=== PATIENT | female | born 1955 | race Two or more races ===

== ENCOUNTER 2025-01-23 00:26 | Inpatient (IN) | payer MEDICAID, MEDICARE, OTHER ==
[2025-01-23] VITALS (7 sets, daily range): BP systolic 138–170; BP diastolic 62–90; PULSE 58–80; RESP 14–18; TEMP 97–97.9; O2SAT 94–98
[~2025-01-23] VITALS: Ht 160 cm; Wt 73.9 kg
--- NOTE | 2025-01-23 00:49 | ED.PDOC ---
History of Present Illness HPI Comments 69 year old female with history of recurrent hematuria for several months presents with one hour of hematuria and right flank pain. No associated fever, chills, dysuria, N/V, malaise. She takes aspirin at home. She has PMH of DM. Otherwise patient has been well, no known trigger or injury. REVIEW OF SYSTEMS: General: No fever, no chills, HEENT: No neck pain, no blurred vision Cardiac: No chest pain. No palpitations. Lungs: No shortness of breath, GI: No abdominal pain, no vomiting : Positive hematuria, positive right flank pain Musculoskeletal: No joint pain , no back pain Skin: No rash, no wound Neuro: No headache, no dizziness, no syncope PHYSICAL EXAM: General: Awake, alert and oriented. No acute distress. Skin: Skin in warm, dry and intact without rashes or lesions. HEENT: The head is normocephalic and atraumatic. Conjunctivae are clear without exudates or hemorrhage. Sclera is non-icteric. Neck: Normal range of motion. No JVD. Cardiac: Regular rate : Positive right CVA tenderness Respiratory: No signs of respiratory distress. No Stridor. Extremities: Upper and lower extremities are atraumatic in appearance without deformity. Neurological: The patient is awake, alert and oriented to person, place, and time with normal speech. Speech is clear. There is no facial asymmetry. Psychiatric: Appropriate mood and affect. Good judgement and insight. Chief Complaint: Urinary Time Seen by MD: 00:28 Allergies: Coded Allergies: NO KNOWN ALLERGIES (Unverified , 01/23/25) Home Meds Reported Medications Chlorthalidone (Chlorthalidone) 25 Mg Tab, 25 MG PO, TAB 01/23/25 Olmesartan Medoxomil (Benicar) 40 Mg Tab, 1 TAB PO DAILY, #30 TAB 5 Refills 01/23/25 Aspirin (Aspir-81) 81 Mg Tab, 1 TAB PO DAILY, #30 TAB 5 Refills 01/23/25 Atorvastatin Calcium (ATORVASTATIN CALCIUM) 20 Mg Tab, 1 TAB PO DAILY 01/23/25 Metformin Hydrochloride (Metformin Hcl) 1,000 Mg Tab, 1 TAB PO DAILY 01/23/25 Insulin Lispro (Insulin Lispro Kwikpen) 100 Unit/Ml Inj, SC 01/23/25 Insulin Glargine (Lantus Solostar) 100 Unit/Ml Inj, SC 01/23/25 Mode of Arrival: Ambulatory Was a procedure done? Was a procedure done?: No Differential Dx Considerations may include: Differential diagnosis includes but is not limited to pyelonephritis, ne phrolithiasis, AAA, musculoskeletal pain, urinary tract infection, cholecystitis, appendicitis, other X-Ray, Labs, Meds, VS Vital Signs Date Time Temp Pulse Resp B/P (MAP) Pulse Ox O2 Delivery O2 Flow Rate FiO2 01/23/25 00:29 98.3 67 18 167/74 97 98.3 Lab Test 01/23/25 00:46 01/23/25 00:45 Range/Units Urine Color Light-yellow Yellow Urine Clarity Turbid H Clear Urine pH 7.0 5.0-9.0 Urine Specific [place] 1.016 1.001-1.035 Urine Protein Trace H Negative Urine Ketones Negative Negative Urine Blood 3+ H Negative /uL Urine Nitrite Negative Negative Urine Bilirubin Negative Negative Urine Urobilinogen Normal Negative mg/dL Urine Leukocyte Esterase 3+ Negative /uL Urine RBC 167 0 - 4 /hpf Urine Microscopic WBC 232 H 0-5 /HPF Urine Squamous Epithelial Cells Few <5 /hpf Urine Bacteria Few H None Seen /hpf Urine Glucose 2+ H Normal mg/dL Urine Opiates Screen Neg NEGATIVE Urine Fentanyl Screen Neg NEGATIVE Urine Barbiturates Screen Neg NEGATIVE Urine Phencyclidine Screen Neg NEGATIVE Urine Amphetamines Screen Neg NEGATIVE Urine Benzodiazepines Screen Neg NEGATIVE Urine Cocaine Screen Neg NEGATIVE Urine Cannabinoids Screen Neg NEGATIVE White Blood Count 8.0 4.4-10.8 10^3/uL Red Blood Count 4.69 4.0-5.20 10^6/uL Hemoglobin 14.4 12.2-16.2 g/dL Hematocrit 42.2 36.0-46.0 % Mean Corpuscular Volume 89.8 80.0-100.0 fL Mean Corpuscular Hemoglobin 30.7 28.0-32.0 pg Mean Corpuscular Hemoglobin Concent 34.1 32.0-36.0 g/dL Red Cell Distribution Width 14.2 11.8-14.3 % Platelet Count 170 140-450 10^3/uL Mean Platelet Volume 9.9 6.9-10.8 fL Neutrophils (%) (Auto) 47.4 37.0-80.0 % Lymphocytes (%) (Auto) 40.4 10.0-50.0 % Monocytes (%) (Auto) 6.0 0.0-12.0 % Eosinophils (%) (Auto) 5.6 0.0-7.0 % Basophils (%) (Auto) 0.6 0.0-2.0 % Neutrophils # (Auto) 3.8 1.6-8.6 10 ^3/uL Lymphocytes # (Auto) 3.2 0.4-5.4 10 ^3/uL Monocytes # (Auto) 0.5 0-1.3 10 ^3/uL Eosinophils # (Auto) 0.4 0-0.8 10 ^3/uL Basophils # (Auto) 0.1 0-0.2 10 ^3/uL Nucleated Red Blood Cells 0.1 % Sodium Level 140 136-145 mmol/L Potassium Level 3.6 3.5-5.1 mmol/L Chloride Level 99 98-107 mmol/L Carbon Dioxide Level 32 H 20-31 mmol/L Anion Gap 9 5-15 Blood Urea Nitrogen 21 9-23 mg/dL Creatinine 1.04 H 0.550-1.02 mg/dL Glomerular Filtration Rate Calc 59 >90 mL/min BUN/Creatinine Ratio 20.2 H 10.0-20.0 Serum Glucose 181 H 74-106 mg/dL Hemoglobin A1c 12.1 H <5.7 % A1C Calcium Level 9.9 8.7-10.4 mg/dL Microbiology Date/Time Source Procedure Growth Status 01/23/25 00:46 Voided Urine Urine Culture - Final Klebsiella pneumoniae Complete Exam: CT CT AB PEL WO CON-NO ORAL OR IV History: hematuria, left flank pain Comparison Study: None TECHNIQUE: Multidetector CT of the abdomen and pelvis was performed from lung bases to pubic symphysis. Imaging was performed without IV contrast. Axial, coronal, and sagittal multiplanar reformats were obtained from the axial data set by the technologist. RADIATION DOSE: CTDI vol 7.55 mGy. DLP 462.12 mGy.cm Findings: Limited evaluation of the solid organs in the absence of IV contrast. Liver: Unremarkable. Spleen: Unremarkable. Pancreas: Unremarkable. Gallbladder: Unremarkable. Adrenals: Unremarkable Kidneys: There is mild left hydronephrosis. The proximal left ureter appears within normal limits. The remainder of the ureter is difficult to visualized. There is a 9 mm calcification in the expected region of the left mid ureter, though not clearly within its boundaries. Punctate bilateral nonobstructing renal calculi. Pelvic Viscera: Scattered pelvic phleboliths. Vasculature: Mild atherosclerotic aortoiliac calcifications. Retroperitoneum: Unremarkable. Bowel: No bowel obstruction. Musculoskeletal: Unremarkable. Soft tissues: Unremarkable Lungs: Basilar atelectasis/scarring. Impression: 1. Mild left hydronephrosis with a nondilated appearance of the left proximal ureter. The mid and distal ureter are difficult to visualize, though a 9 mm calcification is seen in the expected region of the left mid ureter. This is likely outside the ureter given the nondilated appearance of the proximal ureter, however is not conclusive on the basis of this examination. If clinically indicated, a CT urogram may be beneficial in further assessment. 2. Scattered pelvic phleboliths. 3. Additional findings as detailed. Time of 1ST Reevaluation: :58 Reevaluation 1ST: Unchanged Patient Education/Counseling: Other (Need for admission) Family Education/Counseling: No Family Present SEPSIS Sepsis Screen Date sepsis recognized/suspect: Jan 23, 2025 Time Sepsis recognized/suspect: 0034 Recent Procedure: No On Antibiotic Therapy: No Respiratory Rate >20: No Heart Rate >90: No Temp<36 C (96.8 F) or >38.3 C: No SBP <90 or MAP <65 mmHG: No New Acute Mental Status Change: No Is the patient on CPAP, BIPAP,: No Physician Orders Ct Ab Pel Wo Con-No Oral Or Iv (01/23/25 00:39) Vital Signs Date Time Temp Pulse Resp B/P (MAP) Pulse Ox O2 Delivery O2 Flow Rate FiO2 01/23/25 00:29 98.3 67 18 167/74 97 98.3 Laboratory Tests Test 01/23/25 00:45 White Blood Count 8.0 10^3/uL (4.4-10.8) Departure 1 Departure Time of Disposition: :58 Impression: Primary Impression: Hematuria Additional Impressions: KHANH (acute kidney injury) Hydronephrosis UTI (urinary tract infection) Disposition: 09 ADMITTED INPATIENT Condition: Stable Critical Care Note Critical Care Time?: No Stability Stability form required: RON Razo MD Jan 23, 2025 00:49
[2025-01-23 00:56] LABS: Hematocrit 42.2 % (36.0-46.0); Hemoglobin 14.4 g/dL (12.2-16.2); Mean Corpuscular Hemoglobin 30.7 pg (28.0-32.0); Mean Corpuscular Volume 89.8 fL (80.0-100.0); Nucleated Red Blood Cells % 0.1 %
[2025-01-23 01:01] LABS: Urine Protein, UAD TRACE (Negative)
[2025-01-23 01:08] LABS: Chloride 99 mmol/L (98-107); Potassium 3.6 mmol/L (3.5-5.1); Sodium 140 mmol/L (136-145)
[2025-01-23 01:09] LABS: Anion Gap 9 (5-15); Calcium 9.9 mg/dL (8.7-10.4)
[2025-01-23 01:14] LABS: BUN/Creatinine Ratio 20.2 (10.0-20.0); Blood Urea Nitrogen 21 mg/dL (9-23); Carbon Dioxide 32 mmol/L (20-31); Glucose 181 mg/dL (74-106)
--- NOTE | 2025-01-23 01:48 | DVH ---
Exam: CT CT AB PEL WO CON-NO ORAL OR IV History: hematuria, left flank pain Comparison Study: None TECHNIQUE: Multidetector CT of the abdomen and pelvis was performed from lung bases to pubic symphysi s. Imaging was performed without IV contrast. Axial, coronal, and sagittal multiplanar reformats were obtained from the axial data set by the technologist. RADIATION DOSE: CTDI vol 7.55 mGy. DLP 462.12 mGy.cm Findings: Limited evaluation of the solid organs in the absence of IV contrast. Liver: Unremarkable. Spleen: Unremarkable. Pancreas: Unremarkable. Gallbladder: Unremarkable. Adrenals: Unremarkable Kidneys: There is mild left hydronephrosis. The proximal left ureter appears within normal limits. T he remainder of the ureter is difficult to visualized. There is a 9 mm calcification in the expected region of the left mid ureter, though not clearly within its boundaries. Punctate bilateral nonobstr ucting renal calculi. Pelvic Viscera: Scattered pelvic phleboliths. Vasculature: Mild atherosclerotic aortoiliac calcifications. Retroperitoneum: Unremarkable. Bowel: No bowel obstruction. Musculoskeletal: Unremarkable. Soft tissues: Unremarkable Lungs: Basilar atelectasis/scarring. Impression: 1. Mild left hydronephrosis with a nondilated appearance of the left proximal ureter. The mid and dis geetha ureter are difficult to visualize, though a 9 mm calcification is seen in the expected region of the left mid ureter. This is likely outside the ureter given the nondilated appearance of the proxima l ureter, however is not conclusive on the basis of this examination. If clinically indicated, a CT urogram may be beneficial in further assessment. 2. Scattered pelvic phleboliths. 3. Additional findings as detailed.
[2025-01-23] MEDS ORDERED: CEFEPIME 1GM/ 50ML 50 ML IV ONE (02:00)
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
[2025-01-23] MEDS ORDERED: DEXTROSE (50%) 50ML SYRG IV PRN ×2 (04:15→11:15)
[2025-01-23] MEDS: PANTOPRAZOLE 40 MG TAB PO ONE (04:47)
[2025-01-23] MEDS: ATORVASTATIN 20 MG TAB PO ONE (04:47)
[2025-01-23] MEDS: MORPHINE SULFATE INJ 2 MG/ml SYRG IV ONE (04:48)
[2025-01-23] MEDS: cefTRIAXone 1GM/50ML D5W 50 ML IV ONE (04:48)
[2025-01-23] MEDS: ONDANSETRON HCL 4 MG/2 ML VIAL IV ONE (04:48)
[2025-01-23] MEDS: InsuLIN REG 1unit/0.01ml Soln (100units/ml) SC SCH ×2 (05:43→11:55)
[2025-01-23] MEDS: ACCU-CHEK COMFORT CURVE STRIP VI SCH ×2 (05:43→11:56)
[2025-01-23] MEDS: SODIUM CHLORIDE 0.9% 1,000 ML IV ONE (05:51)
[2025-01-23 06:15] LABS: Amphetamine Screen, Urine Neg (NEGATIVE); Barbiturate Scree,Urine Neg (NEGATIVE); Benzodiazephine Screen, Urine Neg (NEGATIVE); Cannabinoid Screen, Urine Neg (NEGATIVE); Cocaine Screen, Urine Neg (NEGATIVE); Opiate Scree,Urine Neg (NEGATIVE); Phencyclidine Screen, Urine Neg (NEGATIVE)
--- NOTE | 2025-01-23 06:47 | DVH ---
INDICATION: Hematuria TECHNIQUE: Multiple real-time sonographic images of the kidneys and bladder were obtained. COMPARISON: CT of the abdomen pelvis performed same date. FINDINGS: The right kidney measures 11.7 cm in length, which is normal in size. There is normal echog enicity of the right kidney. There are few echogenic foci measuring the largest measuring 0.8 cm. No hydronephrosis. The left kidney measures 12.3 cm in length, which is normal in size. There is normal echogenicity of the left kidney. There are few echogenic foci the largest measuring 0.5 cm. No hydronephrosis. No large intraluminal masses are seen in the bladder. Bilateral ureteral jets are identified. Prior t o voiding the bladder volume measures volume 1291 cc. IMPRESSION: 1. No hydronephrosis. Bilateral nonobstructive intrarenal calculi measuring 0.8 cm on the right and 0.5 cm on the left.
[2025-01-23] MEDS ORDERED: INSUINJ37 SC (13:34)
[2025-01-23] MEDS ORDERED: INSU100I54 SC (13:34)
[2025-01-23] MEDS ORDERED: ATOR20TA50 PO (13:34)
[2025-01-23] MEDS ORDERED: METF-372 PO (13:34)
[2025-01-23] MEDS ORDERED: ASPI1TAB20 PO (13:37)
[2025-01-23] MEDS ORDERED: OLME40TA78 PO (13:38)
[2025-01-23] MEDS ORDERED: CHLO25TA2 PO (16:19)
--- NOTE | 2025-01-23 16:29 | DVHPNRES ---
Progress Note Date Seen: Jan 23, 2025 Resident Creating Document: DIANA BATES RESIDENT Medical Necessity Reason Pt with a Central, PICC or Fol: No Subjective Review of Systems A 69-year-old female with prior medical history of type 2 diabetes mellitus, hypertension, stroke 2 years ago, hyperlipidemia, recurrent UTIs and overflow incontinence, who presented to the ED with chief complaint of abdominal pain and hematuria. Patient states onset of pressure like abdominal pain, lower left quadrant, intensity 10/10, slightly with Tylenol, accompanied by chills. The day before presentation, patient states her urine began to have a strong smell and had blood and clots in it, prompting her to seek medical care. Evaluation in the ED, WBC and chemical panel are within normal range, UDS negative, UA is consistent with UTI. Abdominal CT imaging shows mild left hydronephrosis with a nondilated appearance of the left proximal ureter. Renal US shows no hydronephrosis, bilateral nonobstructive intrarenal calculi measuring 0.8 cm on the right and 0.5 cm on the left. Patient was started on IV antibiotics, pain regimen, and was admitted for further work up and follow up. Surgical history: Bladder sling due to overflow urinary incontinence Social: Denies drugs, tobacco, and alcohol use Patient seen in the ED. She is alert and oriented in person, place, and time. She states she feels general malaise, but the abdominal pain has improved. Continues to have some blood in her urine. She currently denies fever, nausea, dysuria, suprapubic pain, chest pain, or other symptoms. Vitals have remained stable. Urine cultures have been ordered. Due to history of overflow incontinence, bladder sling procedure, and recurrent UTIs, urology consult has been placed. Bladder scan is currently pending. We will continue same management and continue to monitor. Review of Systems: Constitutional: Refers general malaise, denies weight loss, fever and chills. HEENT: Denies changes in vision and hearing. Respiratory: Denies shortness of breath and cough Cardiovascular: Denies chest discomfort or palpitations GI: Refers abdominal pain in LLQ, denies abdominal distention, diarrhea : Denies dysuria and urinary frequency. Musculoskeletal: Denies symptoms Skin: Denies rash and pruritus. Neurological: denies dizziness headache vision or hearing problems Objective vital signs Vital Sign Date Time Temp Pulse Resp B/P (MAP) Pulse Ox O2 Delivery O2 Flow Rate FiO2 01/23/25 12:19 97.0 58 138/74 (95) 96 97.0 01/23/25 09:07 16 01/23/25 08:36 Room Air* 0 21 Total Intake and Output 01/22/25 01/22/25 01/23/25 15:00 23:00 07:00 Intake Total 50 ml Balance 50 ml medications Current Medications Medications Dose Ordered Sig/Francie Route Start Time Stop Time Status Last Admin Dose Admin Acetaminophen/ Hydrocodone Bitart 1 tab Q4HP PRN PO 01/23/25 03:15 Ondansetron HCl 4 mg Q4HP PRN IV 01/23/25 03:15 Morphine Sulfate 2 mg Q4HPRN PRN IV 01/23/25 03:15 Ceftriaxone Sodium 50 ml @ 100 mls/hr DAILY@09 IV 01/24/25 09:00 Diagnostic Test (Pha) 1 strip IQ4HR 01/23/25 12:00 01/23/25 11:56 1 STRIP Insulin Human Regular IQ4HR SC 01/23/25 12:00 Dextrose 50 ml UD PRN IV 01/23/25 11:15 Examination General: The patient alert and oriented in person place and time. Patient following commands HEENT: Normocephalic, atraumatic, EOM intact, pink conjunctiva, pink moist mucous membrane Respiratory/pulmonary: Bilateral lung expansion, clear lungs bilaterally, vesicular murmurs present in almost all lung callejas, no associated crackles or wheezes. Abdomen: Abdomen nondistended, normal bowel movements, soft, no pain to palpation in any of the abdominal quadrants, no palpable masses. Extremities: Pain to palpation left iliac crest, no deformities, there is no peripheral edema present at the lower extremities, normal pulses Skin: No rashes or pruritus Neurological: Intact cranial nerves with no focal neurologic deficits laboratory and microbiology Laboratory Tests 01/23/25 00:45 Test 01/23/25 00:45 Range/Units Serum Glucose 181 H 74-106 mg/dL Problem List/Assessment/Plan Problem List/Assessment/Plan Assessment and Plan: Acute Abdominal pain due to Acute Cystitis with Hematuria -Cefepime 1 gr IV once -Ceftriaxone 1 g IV daily -Normal saline bolus -Morphine 2 mg IV q4 hr PRN -[place] 5 mg 1 tablet q4 PO PRN -Urine culture pending History of overflow incontinence -S/p Bladder sling -Urology consulted -Bladder scan pending Left hydronephrosis -Abdominal CT: mild left hydronephrosis with a nondilated appearance of the left proximal ureter. Right and Left nephrolithiasis -Renal US shows no hydronephrosis, bilateral nonobstructive intrarenal calculi measuring 0.8 cm on the right and 0.5 cm on the left. Hypertension -Amlodipine 40 mg PO Type 2 DM with hyperglycemia, HbA1c:12% -Moderate SSI -Accu-cheks -Carbohydrate consistent diet History of CVA Hyperlipidemia -Atorvastatin 40 mg PO daily Case discussed with Dr. Leach. Goals of care discussed with the patient for over 30 minutes, she states she understands and agrees. DNR. Plan discussed with: Patient Date of Service: Jan 23, 2025 Billing Provider: ELENI LEACH MD Common Visit Codes: [id number] INP/OBS CARE(HIGH) Secondary Visit Codes: [id number] CARE PLAN 30 MINUTES DIANA BATES RESIDENT Jan 23, 2025 16:29 ELENI LEACH MD Jan 24, 2025 21:07
[2025-01-23] MEDS: HYDROcodone-ACET 5/325MG TAB PO PRN (18:10)
[2025-01-24] VITALS (9 sets, daily range): BP systolic 104–170; BP diastolic 50–89; PULSE 65–80; RESP 16–20; TEMP 97.9–98.4; O2SAT 95–99
[2025-01-24 07:07] LABS: Hematocrit 39.4 % (36.0-46.0); Hemoglobin 13.7 g/dL (12.2-16.2); Mean Corpuscular Hemoglobin 31.4 pg (28.0-32.0); Mean Corpuscular Volume 90.2 fL (80.0-100.0); Nucleated Red Blood Cells % 0.2 %
[2025-01-24 07:19] LABS: Anion Gap 10 (5-15); Calcium 8.8 mg/dL (8.7-10.4); Chloride 99 mmol/L (98-107); Sodium 140 mmol/L (136-145)
[2025-01-24 07:25] LABS: BUN/Creatinine Ratio 23.6 (10.0-20.0); Blood Urea Nitrogen 21 mg/dL (9-23)
[2025-01-24 07:27] LABS: Carbon Dioxide 31 mmol/L (20-31); Glucose 341 mg/dL (74-106); Potassium 3.4 mmol/L (3.5-5.1)
[2025-01-24] MEDS: POTASSIUM CHL 20 Meq TABLET PO ONE (09:07)
[2025-01-24] MEDS: cefTRIAXone 1GM/50ML D5W 50 ML IV SCH (09:08)
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
--- NOTE | 2025-01-24 11:31 | DVH ---
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 LMP: Postmenopausal FINDINGS: Uterus: 8.8 X 4.3 X 3.7 Cm. 9 mm hypoechoic lesion at the lower uterine segment, possibly a small fib roid Endometrial echo complex: 0.35 cm. Small amount of fluid within the endometrial canal. The ovaries are not visualized bilaterally. Intrapelvic free fluid: Trace fluid in the cul-de-sac IMPRESSION: 1. Small amount of fluid in the endometrial canal which may suggest cervical stenosis versus obstruct ion. Recommend correlation with direct visualization. 2. Possible small uterine fibroid 3. The ovaries are not visualized
[2025-01-24] MEDS ORDERED: DEXTROSE (50%) 50ML SYRG IV PRN (14:30)
--- NOTE | 2025-01-24 15:54 | DVHPNRES ---
Progress Note Date Seen: Jan 24, 2025 Resident Creating Document: DIANA BATES RESIDENT Medical Necessity Reason Pt with a Central, PICC or Fol: Yes Reason for ramos catheter: Bladder Retention/Obstruc Subjective Review of Systems A 69-year-old female with prior medical history of type 2 diabetes mellitus, hypertension, stroke 2 years ago, hyperlipidemia, recurrent UTIs and overflow incontinence, who presented to the ED with chief complaint of abdominal pain and hematuria. Patient states onset of pressure like abdominal pain, lower left quadrant, intensity 10/10, slightly with Tylenol, accompanied by chills. The day before presentation, patient states her urine began to have a strong smell and had blood and clots in it, prompting her to seek medical care. Evaluation in the ED, WBC and chemical panel are within normal range, UDS negative, UA is consistent with UTI. Abdominal CT imaging shows mild left hydronephrosis with a nondilated appearance of the left proximal ureter. Renal US shows no hydronephrosis, bilateral nonobstructive intrarenal calculi measuring 0.8 cm on the right and 0.5 cm on the left. Patient was started on IV antibiotics, pain regimen, and was admitted for further work up and follow up. Patient seen at bedside. Patient states she feels well, slept well, and has been able to ambulate. States that abdominal pain has improved, still has minor abdominal pain when she urinates. She states that yesterday she had some swelling in her legs, however, this resolved on its own. Currently denies more episodes of hematuria, fever, nausea, vomiting, dysuria, chills, chest pain, and palpitations. Vitals have been stable. CBC within normal range, patient was slightly hypokalemic for which PO potassium was given. Glucose levels have been consistently elevated, for which a lantus regimen will be instated. Patient was seen by urology today, who recommended placement of Ramos catheter and left ureteroscopic laser lithotripsy and stent placement will be planned for Sunday. We will continue to monitor. Objective vital signs Vital Sign Date Time Temp Pulse Resp B/P (MAP) Pulse Ox O2 Delivery O2 Flow Rate FiO2 01/24/25 12:43 98.4 68 20 155/60 (91) 96 98.4 01/24/25 08:00 Room Air* 0 21 Total Intake and Output 01/23/25 01/23/25 01/24/25 15:00 23:00 07:00 Intake Total 940 ml 350 ml Output Total 560 ml Balance 380 ml 350 ml medications Current Medications Medications Dose Ordered Sig/Francie Route Start Time Stop Time Status Last Admin Dose Admin Acetaminophen/ Hydrocodone Bitart 1 tab Q4HP PRN PO 01/23/25 03:15 01/24/25 15:08 1 TAB Ondansetron HCl 4 mg Q4HP PRN IV 01/23/25 03:15 Morphine Sulfate 2 mg Q4HPRN PRN IV 01/23/25 03:15 Ceftriaxone Sodium 50 ml @ 100 mls/hr DAILY@09 IV 01/24/25 09:00 01/24/25 09:08 100 MLS/HR Insulin Glargine 10 units BID@0700,2200 SC 01/24/25 22:00 Diagnostic Test (Pha) 1 strip ACHS 01/24/25 17:00 Insulin Human Regular HS SC 01/24/25 22:00 Insulin Human Regular AC SC 01/24/25 17:00 Dextrose 50 ml UD PRN IV 01/24/25 14:30 Examination General: The patient alert and oriented in person place and time. Patient following commands HEENT: Normocephalic, atraumatic, EOM intact, pink conjunctiva, pink moist mucous membrane Respiratory/pulmonary: Bilateral lung expansion, clear lungs bilaterally, vesicular murmurs present in almost all lung callejas, no associated crackles or wheezes. Cardiovascular: Normal RRR, normal S1 and S2 Abdomen: Abdomen nondistended, normal bowel movements, soft, no pain to palpation in any of the abdominal quadrants, no palpable masses. Extremities: Pain to palpation left iliac crest, no deformities, there is no peripheral edema present at the lower extremities, normal pulses Skin: No rashes or pruritus Neurological: Intact cranial nerves with no focal neurologic deficits laboratory and microbiology Laboratory Tests 01/24/25 05:40 Test 01/24/25 05:40 Range/Units Serum Glucose 341 H 74-106 mg/dL Microbiology Date/Time Source Procedure Growth Status 01/23/25 00:46 Voided Urine Urine Culture - Preliminary Resulted Problem List/Assessment/Plan Problem List/Assessment/Plan Assessment and Plan: Acute Abdominal pain due to Acute Cystitis with Hematuria -Cefepime 1 gr IV once -Ceftriaxone 1 g IV daily -Normal saline bolus -Morphine 2 mg IV q4 hr PRN -[place] 5 mg 1 tablet q4 PO PRN -Urine culture preliminary: > 100,000 CFU/mL gram negative rods History of overflow incontinence -S/p Bladder sling -Renal US: Prevoid bladder volume 1291 cc. Left hydronephrosis -Abdominal CT: mild left hydronephrosis with a nondilated appearance of the left proximal ureter. -Ramos catheter has been placed -Urology: Recommend insertion of ramos catheter, left ureteroscopic laser lithotripsy planned for Sunday Right and Left nephrolithiasis -Renal US shows no hydronephrosis, bilateral nonobstructive intrarenal calculi measuring 0.8 cm on the right and 0.5 cm on the left. Hypertension -Amlodipine 40 mg PO Type 2 DM with hyperglycemia, HbA1c:12% -Lantus 10 units BID -Moderate SSI -Accu-cheks -Carbohydrate consistent diet History of CVA Hyperlipidemia -Atorvastatin 40 mg PO daily Case discussed with Dr. Leach. Goals of care discussed with the patient for over 30 minutes, she states she understands and agrees. Plan discussed with: Patient My Orders My Orders Orders - DIANA BATES RESIDENT Procedure Category Date Status Time Pelvic US 01/24/25 Resulted 10:22 Insert Ramos Catheter EDI 01/24/25 In Process 12:04 Date of Service: Jan 24, 2025 Billing Provider: ELENI LEACH MD Common Visit Codes: [id number] INP/OBS CARE(HIGH) DIANA BATES RESIDENT Jan 24, 2025 15:54 ELENI LEACH MD Jan 24, 2025 21:08
[2025-01-24] MEDS: ACCU-CHEK COMFORT CURVE STRIP VI SCH (16:40)
[2025-01-24] MEDS: MORPHINE SULFATE INJ 2 MG/ml SYRG IV ONE (16:40)
[2025-01-24] MEDS: InsuLIN REG 1unit/0.01ml Soln (100units/ml) SC SCH ×2 (16:41→22:36)
[2025-01-24] MEDS: INSULIN LANTUS (GLARGINE) 1 /0.01ml (100units/ml) SC SCH (22:00)
[2025-01-24] MEDS: MORPHINE SULFATE INJ 2 MG/ml SYRG IV PRN (22:12)
[2025-01-25 01:00] VITALS: BP 155/76; PULSE 67; RESP 18; TEMP 98.4; O2SAT 97
[2025-01-25 05:00] VITALS: BP 148/81; PULSE 68; RESP 18; TEMP 98.4; O2SAT 93
[2025-01-25 06:33] LABS: Hematocrit 39.7 % (36.0-46.0); Hemoglobin 13.6 g/dL (12.2-16.2); Mean Corpuscular Hemoglobin 30.8 pg (28.0-32.0); Mean Corpuscular Volume 89.6 fL (80.0-100.0); Nucleated Red Blood Cells % 0.0 %
[2025-01-25 06:51] LABS: Anion Gap 9 (5-15); Chloride 98 mmol/L (98-107); Sodium 138 mmol/L (136-145)
[2025-01-25 06:56] LABS: Calcium 8.7 mg/dL (8.7-10.4); Carbon Dioxide 31 mmol/L (20-31); Potassium 3.4 mmol/L (3.5-5.1)
[2025-01-25 06:57] LABS: BUN/Creatinine Ratio 25.6 (10.0-20.0); Blood Urea Nitrogen 20 mg/dL (9-23)
[2025-01-25 07:00] LABS: Glucose 249 mg/dL (74-106)
[2025-01-25 08:52] VITALS: BP 163/84; PULSE 77; RESP 18; TEMP 98.5; O2SAT 95
[2025-01-25] MEDS: hydroCHLOROthiazide 25 MG TAB PO SCH (09:19)
[2025-01-25 13:00] VITALS: BP 112/61; PULSE 72; RESP 18; TEMP 98; O2SAT 98
--- NOTE | 2025-01-25 13:59 | DVH ---
EXAM: XY CHEST PORTABLE TECHNIQUE: Single frontal chest radiograph CLINICAL HISTORY: PRE OP COMPARISON: None Findings/Impression: Frontal chest radiograph demonstrates no acute osseous or superficial soft tissue abnormalities. The trachea is midline. The cardiac silhouette and mediastinum are within normal limits. Bibasilar atelectasis. No pneumothorax, pleural effusions, or consolidations.
--- NOTE | 2025-01-25 14:56 | DVHPNRES ---
Progress Note Date Seen: Jan 25, 2025 Resident Creating Document: OLGA DAVIS Medical Necessity Reason Pt with a Central, PICC or Fol: Yes Reason for ramos catheter: Bladder Retention/Obstruc Subjective Review of Systems A 69-year-old female with prior medical history of type 2 diabetes mellitus, hypertension, stroke 2 years ago, hyperlipidemia, recurrent UTIs and overflow incontinence, who presented to the ED with chief complaint of abdominal pain and hematuria. Patient states onset of pressure like abdominal pain, lower left quadrant, intensity 10/10, slightly with Tylenol, accompanied by chills. The day before presentation, patient states her urine began to have a strong smell and had blood and clots in it, prompting her to seek medical care. Evaluation in the ED, WBC and chemical panel are within normal range, UDS negative, UA is consistent with UTI. Abdominal CT imaging shows mild left hydronephrosis with a nondilated appearance of the left proximal ureter. Renal US shows no hydronephrosis, bilateral nonobstructive intrarenal calculi measuring 0.8 cm on the right and 0.5 cm on the left. Patient was started on IV antibiotics, pain regimen, and was admitted for further work up and follow up. Patient seen at bedside. Patient states she feels well, slept well, and has been able to ambulate. States that abdominal pain has improved, still has minor abdominal pain when she urinates. She states that yesterday she had some swelling in her legs, however, this resolved on its own. Currently denies more episodes of hematuria, fever, nausea, vomiting, dysuria, chills, chest pain, and palpitations. Vitals have been stable. CBC within normal range, patient was slightly hypokalemic for which PO potassium was given. Glucose levels have been consistently elevated, for which a lantus regimen will be instated. Patient was seen by urology today, who recommended placement of Ramos catheter and left ureteroscopic laser lithotripsy and stent placement will be planned for Sunday. We will continue to monitor. Patient seen at bedside. Patient still complains with mild abdominal pain when she urinates. Urine bacterial culture shows Klebsiella pnuemoniae. Patient will begin NPO after midnight in preparation for a procedure scheduled tomorrow. Objective vital signs Vital Sign Date Time Temp Pulse Resp B/P (MAP) Pulse Ox O2 Delivery O2 Flow Rate FiO2 8/3/25 09:20 168/84 01/25/25 08:52 98.5 77 18 95 98.5 01/25/25 07:45 Room Air* 0 21 Total Intake and Output 01/24/25 01/24/25 01/25/25 15:00 23:00 07:00 Intake Total 270 ml 640 ml 800 ml Output Total 1050 ml 2000 ml Balance 270 ml -410 ml -1200 ml medications Current Medications Medications Dose Ordered Sig/Francie Route Start Time Stop Time Status Last Admin Dose Admin Acetaminophen/ Hydrocodone Bitart 1 tab Q4HP PRN PO 01/23/25 03:15 01/24/25 15:08 1 TAB Ondansetron HCl 4 mg Q4HP PRN IV 01/23/25 03:15 Morphine Sulfate 2 mg Q4HPRN PRN IV 01/23/25 03:15 01/24/25 22:12 2 MG Ceftriaxone Sodium 50 ml @ 100 mls/hr DAILY@09 IV 01/24/25 09:00 01/25/25 09:18 100 MLS/HR Insulin Glargine 10 units BID@0700,2200 SC 01/24/25 22:00 01/25/25 06:37 10 UNITS Diagnostic Test (Pha) 1 strip ACHS 01/24/25 17:00 01/25/25 11:49 1 STRIP Insulin Human Regular HS SC 01/24/25 22:00 01/24/25 22:36 8 UNITS Insulin Human Regular AC SC 01/24/25 17:00 01/25/25 11:48 9 UNITS Dextrose 50 ml UD PRN IV 01/24/25 14:30 Hydrochlorothiazide 25 mg DAILY PO 01/25/25 10:00 01/25/25 09:19 25 MG Amlodipine Besylate 10 mg DAILY PO 01/25/25 10:00 01/25/25 09:20 10 MG Examination General: The patient alert and oriented in person place and time. Patient following commands HEENT: Normocephalic, atraumatic, EOM intact, pink conjunctiva, pink moist mucous membrane Respiratory/pulmonary: Bilateral lung expansion, clear lungs bilaterally, vesicular murmurs present in almost all lung callejas, no associated crackles or wheezes. Cardiovascular: Normal RRR, normal S1 and S2 Abdomen: Abdomen nondistended, normal bowel movements, soft, no pain to palpation in any of the abdominal quadrants, no palpable masses. Extremities: Pain to palpation left iliac crest, no deformities, there is no peripheral edema present at the lower extremities, normal pulses Skin: No rashes or pruritus Neurological: Intact cranial nerves with no focal neurologic deficits laboratory and microbiology Laboratory Tests 01/25/25 05:40 Test 01/25/25 05:40 Range/Units Serum Glucose 249 H 74-106 mg/dL Microbiology Date/Time Source Procedure Growth Status 01/23/25 00:46 Voided Urine Urine Culture - Final Klebsiella pneumoniae Complete Labs and/or images reviewed: Labs reviewed by me, Image(s) reviewed by me Problem List/Assessment/Plan Problem List/Assessment/Plan # Acute Abdominal pain due to Acute Cystitis with Hematuria -Cefepime 1 gr IV once -Ceftriaxone 1 g IV daily -Normal saline bolus -Morphine 2 mg IV q4 hr PRN -Marcellus 5 mg 1 tablet q4 PO PRN -Urine culture preliminary: > 100,000 CFU/mL gram negative rods -Urine culture final: >100,000, Klebsiella pneumoniae # History of overflow incontinence -S/p Bladder sling -Renal US: Prevoid bladder volume 1291 cc. # Left hydronephrosis -Abdominal CT: mild left hydronephrosis with a nondilated appearance of the left proximal ureter. -Ramos catheter has been placed -Urology: Recommend insertion of ramos catheter, left ureteroscopic laser lithotripsy planned for Sunday # Right and Left nephrolithiasis -Renal US shows no hydronephrosis, bilateral nonobstructive intrarenal calculi measuring 0.8 cm on the right and 0.5 cm on the left. # Hypertension -Amlodipine 40 mg PO # Type 2 DM with hyperglycemia, HbA1c:12% -Lantus 10 units BID -Moderate SSI -Accu-cheks -Carbohydrate consistent diet # History of CVA # Hyperlipidemia -Atorvastatin 40 mg PO daily Goals of care: Full code, discussed for >16 minutes on 01/01/24 Plan discussed with patient Plan discussed with Dr. Leach Plan discussed with: Patient, Other My Orders My Orders Orders - OLGA DAVIS Procedure Category Date Status Time Npo (Nothing By DIET 01/26/25 Transmitted Mouth) Diet Breakfast Date of Service: Jan 25, 2025 Billing Provider: ELENI LEACH MD Common Visit Codes: [id number] INP/OBS CARE(HIGH) SUSANAMIEKARLENE RESIDENT Jan 25, 2025 14:56 ELENI LEACH MD Jan 25, 2025 21:42
--- NOTE | 2025-01-25 15:17 | DVHDSRES ---
Discharge Summary Date of Admission Resident Creating Document: OLGA DAVIS RESIDENT Jan 23, 2025 at 03:07 Date of Discharge: Jan 25, 2025 Labs/Diagnostic Data: Laboratory Results Test 01/25/25 11:31 01/25/25 05:40 01/23/25 00:46 01/23/25 00:45 POC Glucose 294 mg/dl (70-106) White Blood Count 7.0 10^3/uL (4.4-10.8) Red Blood Count 4.43 10^6/uL (4.0-5.20) Hemoglobin 13.6 g/dL (12.2-16.2) Hematocrit 39.7 % (36.0-46.0) Mean Corpuscular Volume 89.6 fL (80.0-100.0) Mean Corpuscular Hemoglobin 30.8 pg (28.0-32.0) Mean Corpuscular Hemoglobin Concent 34.4 g/dL (32.0-36.0) Red Cell Distribution Width 13.7 % (11.8-14.3) Platelet Count 148 10^3/uL (140-450) Mean Platelet Volume 10.3 fL (6.9-10.8) Neutrophils (%) (Auto) 51.2 % (37.0-80.0) Lymphocytes (%) (Auto) 36.6 % (10.0-50.0) Monocytes (%) (Auto) 7.1 % (0.0-12.0) Eosinophils (%) (Auto) 4.3 % (0.0-7.0) Basophils (%) (Auto) 0.8 % (0.0-2.0) Neutrophils # (Auto) 3.6 10 ^3/uL (1.6-8.6) Lymphocytes # (Auto) 2.6 10 ^3/uL (0.4-5.4) Monocytes # (Auto) 0.5 10 ^3/uL (0-1.3) Eosinophils # (Auto) 0.3 10 ^3/uL (0-0.8) Basophils # (Auto) 0.1 10 ^3/uL (0-0.2) Nucleated Red Blood Cells 0.0 % Sodium Level 138 mmol/L (136-145) Potassium Level 3.4 mmol/L (3.5-5.1) Chloride Level 98 mmol/L (98-107) Carbon Dioxide Level 31 mmol/L (20-31) Anion Gap 9 (5-15) Blood Urea Nitrogen 20 mg/dL (9-23) Creatinine 0.78 mg/dL (0.550-1.02) Glomerular Filtration Rate Calc 83 mL/min (>90) BUN/Creatinine Ratio 25.6 (10.0-20.0) Serum Glucose 249 mg/dL (74-106) Calcium Level 8.7 mg/dL (8.7-10.4) Urine Color Light-yellow (Yellow) Urine Clarity Turbid (Clear) Urine pH 7.0 (5.0-9.0) Urine Specific [place] 1.016 (1.001-1.035) Urine Protein Trace (Negative) Urine Ketones Negative (Negative) Urine Blood 3+ /uL (Negative) Urine Nitrite Negative (Negative) Urine Bilirubin Negative (Negative) Urine Urobilinogen Normal mg/dL (Negative) Urine Leukocyte Esterase 3+ /uL (Negative) Urine RBC 167 /hpf (0 - 4) Urine Microscopic WBC 232 /HPF (0-5) Urine Squamous Epithelial Cells Few /hpf (<5) Urine Bacteria Few /hpf (None Seen) Urine Glucose 2+ mg/dL (Normal) Urine Opiates Screen Neg (NEGATIVE) Urine Fentanyl Screen Neg (NEGATIVE) Urine Barbiturates Screen Neg (NEGATIVE) Urine Phencyclidine Screen Neg (NEGATIVE) Urine Amphetamines Screen Neg (NEGATIVE) Urine Benzodiazepines Screen Neg (NEGATIVE) Urine Cocaine Screen Neg (NEGATIVE) Urine Cannabinoids Screen Neg (NEGATIVE) Hemoglobin A1c 12.1 % A1C (<5.7) Other Laboratory Tests 01/25/25 05:40 Discharge Instruct/Medications Scheduled Aspirin (Aspir-81), 1 TAB PO DAILY, (Reported) Atorvastatin Calcium (Atorvastatin Calcium), 1 TAB PO DAILY, (Reported) Metformin Hydrochloride (Metformin Hcl), 1 TAB PO DAILY, (Reported) Olmesartan Medoxomil (Benicar), 1 TAB PO DAILY, (Reported) Miscellaneous Medications Chlorthalidone (Chlorthalidone), 25 MG PO, (Reported) Insulin Glargine (Lantus Solostar), SC, (Reported) Insulin Lispro (Insulin Lispro Kwikpen), SC, (Reported) Discharge Statement: "Patient was advised to return to the ER or call 911 if any headaches, dizziness, shortness of breath, chest pain, abdominal pain, bleeding, fevers, or worsening of medical condition. Patient was counseled about treatment plan, medications, possible side effects, patientverbalized understanding. All questions were answered to the best of my ability. This discharge took greater then 30 minutes in planning, reviewing documentation, counseling the patient, and discussing with other team members." ASSESSMENT ASSESSMENT Assessment OLGA DAVIS RESIDENT Jan 25, 2025 15:17
[2025-01-25 17:00] VITALS: BP 138/82; PULSE 73; RESP 18; TEMP 98.2; O2SAT 99
[2025-01-25] MEDS: POTASSIUM CHL 20 Meq TABLET PO ONE (17:18)
[2025-01-25 21:00] VITALS: BP 153/80; PULSE 72; RESP 17; TEMP 98; O2SAT 96
[2025-01-25] MEDS: DOCUSATE SOD 100 MG CAP PO ONE (22:36)
[2025-01-25] MEDS: ACETAMINOPHEN 325 MG TAB PO ONE (22:37)
[2025-01-26] VITALS (12 sets, daily range): BP systolic 102–167; BP diastolic 63–100; PULSE 60–75; RESP 12–20; TEMP 96.6–98.3; O2SAT 93–99
[2025-01-26] MEDS: InsuLIN REG 1unit/0.01ml Soln (100units/ml) SC ONE (06:40)
[2025-01-26 07:20] LABS: Hematocrit 40.4 % (36.0-46.0); Hemoglobin 13.9 g/dL (12.2-16.2); Mean Corpuscular Hemoglobin 30.8 pg (28.0-32.0); Mean Corpuscular Volume 89.7 fL (80.0-100.0); Nucleated Red Blood Cells % 0.1 %
[2025-01-26 07:27] LABS: Chloride 102 mmol/L (98-107); Sodium 142 mmol/L (136-145)
[2025-01-26 07:28] LABS: Anion Gap 10 (5-15); Calcium 8.8 mg/dL (8.7-10.4); Carbon Dioxide 30 mmol/L (20-31)
[2025-01-26 07:29] LABS: Potassium 3.4 mmol/L (3.5-5.1)
[2025-01-26 07:33] LABS: BUN/Creatinine Ratio 26.3 (10.0-20.0); Blood Urea Nitrogen 20 mg/dL (9-23)
[2025-01-26 07:34] LABS: Glucose 227 mg/dL (74-106)
[2025-01-26 07:37] LABS: INR 0.97 (0.9-1.15); Partial Thromboplastin Time 28.5 SEC (24.5-34.5); Prothrombin Time 10.3 sec (9.3-11.8)
--- NOTE | 2025-01-26 12:02 | ECG ---
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
[2025-01-26] MEDS ORDERED: MIDAZOLAM HCL 2MG/2ML 2ml VIAL (1mg/ml) ONE (12:29)
[2025-01-26] MEDS ORDERED: SODIUM CHLORIDE LOCK 10 ML ONE (12:29)
[2025-01-26] MEDS ORDERED: ONDANSETRON HCL 4 MG/2 ML VIAL ONE (12:29)
[2025-01-26] MEDS ORDERED: fentaNYL CITRATE 100 MCG/2 ML VL ONE (12:29)
[2025-01-26] MEDS ORDERED: LIDOCAINE 1% INJ PF 5ML AMP ONE (12:29)
[2025-01-26] MEDS ORDERED: KETAMINE 50mg/ML 1ml syringe ONE (12:29)
[2025-01-26] MEDS ORDERED: PROPOFOL 10 MG/ML 20 ML IV ONE (12:29)
[2025-01-26] MEDS ORDERED: LIDOCAINE HCL 2% TOP JELLY 5ML TOP ONE (12:29)
[2025-01-26] MEDS ORDERED: MORPHINE SULFATE INJ 2 MG/ml SYRG IV PRN (12:45)
[2025-01-26] MEDS ORDERED: METOCLOPRAMIDE HCL 5MG/ml INJ 2ml VIAL IV ONE (12:45)
[2025-01-26] MEDS ORDERED: MORPHINE SULFATE 4 MG/ML SYR/VIAL IV PRN (12:45)
[2025-01-26] MEDS ORDERED: HYDROmorphone HCL 2 MG/ML VL/or syr IV PRN ×2 (12:45)
--- NOTE | 2025-01-26 15:02 | DVHNC2 ---
Procedure - OPERATIVE REPORT Pre-op. Diagnosis: Left mid ureteral calculus, 9 mm left flank pain urinary retention secondary to prior sling operation Post-op. Diagnosis: Same as pre-op diagnosis Operation: left ureteroscopy/pyeloscopy cystoscopy with left retrograde pyelogram and left ureteral stent placement Anesthesia: general Dr. Page Indications: patient admitted for left-sided flank pain due to a 9 mm left mid ureteral calculus is to undergo left ureteroscope epic laser lithotripsy and stent placement. The indications, risks, alternative, benefits, and complications of ureteroscope with laser lithotripsy and stent placement are discussed with patient. All questions were encouraged and answered. She elected to proceed. Details of Procedure: After obtaining the consent, the patient was taken to the operating room and underwent general anesthesia. She was placed in dorsal lithotomy position with the area of the genitalia prepped and draped in usual sterile manner. Twenty-one Prydeinig rigid cystoscope was used to inspect the urethra and the bladder. The left ureteric orifice was cannulated with sensory guidewire and advanced proximally. On fluoroscopy the stone had migrated distally. The cystoscope was then removed. Rigid ureteroscope was utilized to access the left distal ureter. During the access, the stone migrated proximally due to the irrigation. The stone was no longer identified in the distal ureter. Next a flexible digital ureteroscope was used to inspect the ureter and renal pelvis. All the calices were evaluated and I was unable to identify the stone on fluoroscopy or endoscopically. After several attempts, I decided to abort the procedure with a stent left in place. Guidewire was then placed into the renal system and the ureteroscope was removed. The guidewire was backloaded onto the cystoscope and under direct vision, six Prydeinig by 24 cm polaris loop ureteral stent was placed. Bladder was decompressed. Patient was awakened and taken to recovery room in stable condition Specimens: none Complications: none Findings: 6 x 24 cm polaris loop ureteral stent placed Notes: we will re-evaluate the stone position with postoperative KUB versus CT scan as outpatient AMELIA GRULLON MD Jan 26, 2025 15:02
--- NOTE | 2025-01-26 15:03 | DVHPNRES ---
Progress Note Date Seen: Jan 26, 2025 Resident Creating Document: DIANA BATES RESIDENT Medical Necessity Reason Pt with a Central, PICC or Fol: Yes Reason for ramos catheter: Bladder Retention/Obstruc Subjective Review of Systems A 69-year-old female with prior medical history of type 2 diabetes mellitus, hypertension, stroke 2 years ago, hyperlipidemia, recurrent UTIs and overflow incontinence, who presented to the ED with chief complaint of abdominal pain and hematuria. Patient states onset of pressure like abdominal pain, lower left quadrant, intensity 10/10, slightly with Tylenol, accompanied by chills. The day before presentation, patient states her urine began to have a strong smell and had blood and clots in it, prompting her to seek medical care. Evaluation in the ED, WBC and chemical panel are within normal range, UDS negative, UA is consistent with UTI. Abdominal CT imaging shows mild left hydronephrosis with a nondilated appearance of the left proximal ureter. Renal US shows no hydronephrosis, bilateral nonobstructive intrarenal calculi measuring 0.8 cm on the right and 0.5 cm on the left. Patient was started on IV antibiotics, pain regimen, and was admitted for further work up and follow up. Patient seen at bedside. She is AOx4, states she is well. Pain has decreased, she has been able to ambulate, and is tolerating oral diet. No adverse events over night. Blood glucose has been elevated, she continues on Lantus BID. Nursing reached out due to elevated blood sugar this morning, a decreased dose of insulin was given due patient's NPO status. Vitals have been stable, and labs are within normal range. She will be undergoing lithotripsy today with Urology. We will continue to monitor. Objective vital signs Vital Sign Date Time Temp Pulse Resp B/P (MAP) Pulse Ox O2 Delivery O2 Flow Rate FiO2 01/26/25 12:26 73 18 146/100 01/26/25 09:00 97.8 97 97.8 01/26/25 08:00 Room Air* 0 21 Total Intake and Output 01/25/25 01/25/25 01/26/25 15:00 23:00 07:00 Intake Total 500 ml 300 ml Output Total 1400 ml 300 ml Balance -900 ml 0 ml medications Current Medications Medications Dose Ordered Sig/Francie Route Start Time Stop Time Status Last Admin Dose Admin Acetaminophen/ Hydrocodone Bitart 1 tab Q4HP PRN PO 01/23/25 03:15 01/24/25 15:08 1 TAB Ondansetron HCl 4 mg Q4HP PRN IV 01/23/25 03:15 Morphine Sulfate 2 mg Q4HPRN PRN IV 01/23/25 03:15 01/26/25 12:26 2 MG Ceftriaxone Sodium 50 ml @ 100 mls/hr DAILY@09 IV 01/24/25 09:00 01/26/25 10:10 100 MLS/HR Diagnostic Test (Pha) 1 strip ACHS 01/24/25 17:00 01/26/25 11:30 1 STRIP Insulin Human Regular HS SC 01/24/25 22:00 01/25/25 21:38 10 UNITS Insulin Human Regular AC SC 01/24/25 17:00 01/25/25 17:19 15 UNITS Dextrose 50 ml UD PRN IV 01/24/25 14:30 Hydrochlorothiazide 25 mg DAILY PO 01/25/25 10:00 01/26/25 10:11 25 MG Amlodipine Besylate 10 mg DAILY PO 01/25/25 10:00 01/26/25 10:11 10 MG Insulin Glargine 15 units BID@0700,2200 SC 01/26/25 22:00 Morphine Sulfate 2 mg Q4H PRN IV 01/26/25 12:45 01/26/25 16:46 Examination General: The patient alert and oriented in person place and time. Patient following commands HEENT: Normocephalic, atraumatic, EOM intact, pink conjunctiva, pink moist mucous membrane Respiratory/pulmonary: Bilateral lung expansion, clear lungs bilaterally, vesicular murmurs present in almost all lung callejas, no associated crackles or wheezes. Cardiovascular: Normal RRR, normal S1 and S2 Abdomen: Abdomen nondistended, normal bowel movements, soft, no pain to palpation in any of the abdominal quadrants, no palpable masses. : Presence of Ramos draining clear urine Extremities: Pain to palpation left iliac crest, no deformities, there is no peripheral edema present at the lower extremities, normal pulses Skin: No rashes or pruritus Neurological: Intact cranial nerves with no focal neurologic deficits laboratory and microbiology Laboratory Tests 01/26/25 05:38 Test 01/26/25 05:38 Range/Units Serum Glucose 227 H 74-106 mg/dL Microbiology Date/Time Source Procedure Growth Status 01/23/25 00:46 Voided Urine Urine Culture - Final Klebsiella pneumoniae Complete Problem List/Assessment/Plan Problem List/Assessment/Plan Assessment and Plan: Acute Abdominal pain due to Acute Cystitis with Hematuria -Cefepime 1 gr IV once -Ceftriaxone 1 g IV daily -Normal saline bolus -Morphine 2 mg IV q4 hr PRN -[place] 5 mg 1 tablet q4 PO PRN -Urine culture: Klebsiella pneumoniae, sensitive to ceftriaxone History of overflow incontinence -S/p Bladder sling -Renal US: Prevoid bladder volume 1291 cc. Left hydronephrosis -Abdominal CT: mild left hydronephrosis with a nondilated appearance of the left proximal ureter. -Ramos catheter has been placed -Urology: Recommend insertion of ramos catheter, left ureteroscopic laser lithotripsy planned for Sunday Left ureterolithiasis -Abdominal CT: The mid and distal ureter are difficult to visualize, though a 9 mm calcification is seen in the expected region of the left mid ureter. -S/p left ureteroscopic laser lithotripsy and stent placement Right and Left nephrolithiasis -Renal US shows no hydronephrosis, bilateral nonobstructive intrarenal calculi measuring 0.8 cm on the right and 0.5 cm on the left. Hypertension -Amlodipine 40 mg PO Type 2 DM with hyperglycemia, HbA1c:12% -Lantus 15 units BID -Moderate SSI -Accu-cheks -Carbohydrate consistent diet History of CVA Hyperlipidemia -Atorvastatin 40 mg PO daily Case discussed with Dr. Leach. Goals of care discussed with the patient for over 30 minutes, she states she understands and agrees. Plan discussed with: Patient, Other (RN) Date of Service: Jan 26, 2025 Billing Provider: ELENI LEACH MD Common Visit Codes: [id number] INP/OBS CARE(HIGH) DIANA BATES RESIDENT Jan 26, 2025 15:03 ELENI LEACH MD Feb 01, 2025 20:37
[2025-01-26] MEDS: ACCU-CHEK COMFORT CURVE STRIP VI ONE (15:10)
[2025-01-26] MEDS: ROCURONIUM 10MG/ML 10ML VIAL IV ONE (15:16)
[2025-01-26] MEDS: SUCCINYLCHOLINE CHLORIDE 20 MG/ML 10ML VIAL IV ONE (15:16)
[2025-01-26] MEDS: IOHEXOL 300 MG/ML 100ML BOTTLE IJ ONE (15:17)
[2025-01-26] MEDS ORDERED: KETOROLAC TROMETH 30 MG/ML 1ML VIAL IV ONE (16:00)
[2025-01-26] MEDS ORDERED: KETOROLAC TROMETH 30 MG/ML 1ML VIAL ONE (16:05)
[2025-01-26] MEDS ORDERED: HYDROmorphone HCL 2 MG/ML VL/or syr ONE (16:25)
--- NOTE | 2025-01-26 17:03 | DVH ---
C-ARM FLUOROSCOPY: PROCEDURE: Internal ureteral stent placement, left FLUOROSCOPY TIME: 85.3 seconds DAP: 19.8 mgy FINDINGS: Spot intraoperative C arm radiographs demonstrating left internal ureteral stent placement. IMPRESSION: Please refer to surgical report for detailed findings.
[2025-01-26] MEDS: INSULIN LANTUS (GLARGINE) 1 /0.01ml (100units/ml) SC SCH (22:21)
[2025-01-27 01:00] VITALS: BP 136/77; PULSE 80; RESP 20; TEMP 96.7; O2SAT 96
[2025-01-27 05:00] VITALS: BP 141/74; PULSE 78; RESP 20; TEMP 98.5; O2SAT 96
[2025-01-27 09:00] VITALS: BP 147/76; PULSE 71; RESP 18; TEMP 98.3; O2SAT 95
--- NOTE | 2025-01-27 10:28 | DVH ---
CT CT AB PEL WO CON-NO ORAL OR IV INDICATION: left renal stone EXAM DATE: 01/27/2025 09:27 AM COMPARISON: CT CT AB PEL WO CON-NO ORAL OR IV on DOS: 01/23/25 RADIATION DOSE: CTDIvol: 11.75 mGy, DLP: 644.55 mGy*cm PROCEDURE: Helical CT images were obtained of the abdomen and pelvis without IV contrast Sagittal and coronal reconstructions are provided. ORAL CONTRAST: None. ADDITIONAL IMAGES / REFORMATS: None All C T scans at this medical facility are performed using dose modulation techniques as appropriate to a p erformed exam including the following: Automated exposure control was utilized; adjustment of the MA and/or KV according to patient size; and use of iterative reconstruction technique. FINDINGS: LUNG BASE: Bibasilar atelectasis. LIVER: Normal. GALLBLADDER AND BILIARY TREE: No calcified gallstones. Normal caliber wall. No intra- or extrahepatic biliary ductal dilation. PANCREAS: Normal. SPLEEN: Normal. BOWEL: Normal. Partially visualized appendix appears normal. ADRENALS: Normal. KIDNEYS AND URETER: Interval placement of a left ureteral stent with interval removal of a left mid u reteral stone. BLADDER: Normal. REPRODUCTIVE ORGANS: Normal. LYMPH NODES:No lymphadenopathy. PERITONEUM: No ascites or free air. No other fluid collection. VESSELS: Scattered atherosclerotic calcifications are noted. RETROPERITONEUM: Normal. ABDOMINAL WALL: Normal. BONES: Scattered osseous degenerative changes are noted. IMPRESSION: Interval placement of a left ureteral stent with interval removal of a left mid ureteral stone.
[2025-01-27] MEDS: ONDANSETRON HCL 4 MG/2 ML VIAL IV PRN (12:39)
[2025-01-27 13:00] VITALS: BP 170/86; PULSE 84; RESP 17; TEMP 98.3; O2SAT 96
[2025-01-27 13:48] LABS: Hematocrit 41.5 % (36.0-46.0); Hemoglobin 14.3 g/dL (12.2-16.2); Mean Corpuscular Hemoglobin 30.8 pg (28.0-32.0); Mean Corpuscular Volume 89.7 fL (80.0-100.0); Nucleated Red Blood Cells % 0.1 %
[2025-01-27 13:51] LABS: Sodium 138 mmol/L (136-145)
[2025-01-27 13:52] LABS: Anion Gap 9 (5-15); Calcium 8.9 mg/dL (8.7-10.4)
[2025-01-27 13:54] LABS: Carbon Dioxide 31 mmol/L (20-31); Chloride 98 mmol/L (98-107); Potassium 3.4 mmol/L (3.5-5.1)
[2025-01-27 13:57] LABS: BUN/Creatinine Ratio 23.4 (10.0-20.0); Blood Urea Nitrogen 18 mg/dL (9-23)
[2025-01-27 13:59] LABS: Glucose 229 mg/dL (74-106)
--- NOTE | 2025-01-27 16:12 | DVHPNRES ---
Progress Note Date Seen: Jan 27, 2025 Resident Creating Document: DIANA BATES RESIDENT Medical Necessity Reason Pt with a Central, PICC or Fol: No Subjective Review of Systems A 69-year-old female with prior medical history of type 2 diabetes mellitus, hypertension, stroke 2 years ago, hyperlipidemia, recurrent UTIs and overflow incontinence, who presented to the ED with chief complaint of abdominal pain and hematuria. Patient states onset of pressure like abdominal pain, lower left quadrant, intensity 10/10, slightly with Tylenol, accompanied by chills. The day before presentation, patient states her urine began to have a strong smell and had blood and clots in it, prompting her to seek medical care. Evaluation in the ED, WBC and chemical panel are within normal range, UDS negative, UA is consistent with UTI. Abdominal CT imaging shows mild left hydronephrosis with a nondilated appearance of the left proximal ureter. Renal US shows no hydronephrosis, bilateral nonobstructive intrarenal calculi measuring 0.8 cm on the right and 0.5 cm on the left. Patient was started on IV antibiotics, pain regimen, and was admitted for further work up and follow up. Patient seen at bedside. Patient is AO x4, on initial evaluation this morning patient stated that pain had improved and was only present when she was draining while urinating. however, patient later developed intense abdominal pain in left lower quadrant with radiation towards her back. She denied nausea, vomiting, fever, diarrhea, chest pain, and other symptoms. Patient has been hypertensive, however this may be associated to periods of pains, other vitals have been within normal range. Labs within normal range. Patient was taken to T today which showed interval placement of left ureteral stent with interval removal of the left mid ureteral stone. We will continue to monitor the patient's pain and manage accordingly. Objective vital signs Vital Sign Date Time Temp Pulse Resp B/P (MAP) Pulse Ox O2 Delivery O2 Flow Rate FiO2 01/27/25 14:10 75 18 203/93 01/27/25 09:00 98.3 95 98.3 01/26/25 20:00 Room Air* 0 21 Total Intake and Output 01/26/25 01/26/25 01/27/25 15:00 23:00 07:00 Intake Total 10 ml 50 ml 600 ml Output Total 150 ml 200 ml Balance -140 ml -150 ml 600 ml medications Current Medications Medications Dose Ordered Sig/Francie Route Start Time Stop Time Status Last Admin Dose Admin Acetaminophen/ Hydrocodone Bitart 1 tab Q4HP PRN PO 01/23/25 03:15 01/27/25 10:34 1 TAB Ondansetron HCl 4 mg Q4HP PRN IV 01/23/25 03:15 01/27/25 12:39 4 MG Morphine Sulfate 2 mg Q4HPRN PRN IV 01/23/25 03:15 01/27/25 14:10 2 MG Ceftriaxone Sodium 50 ml @ 100 mls/hr DAILY@09 IV 01/24/25 09:00 01/27/25 09:11 100 MLS/HR Diagnostic Test (Pha) 1 strip ACHS 01/24/25 17:00 01/27/25 11:43 1 STRIP Insulin Human Regular HS SC 01/24/25 22:00 01/26/25 22:22 6 UNITS Insulin Human Regular AC SC 01/24/25 17:00 01/27/25 11:48 6 UNITS Dextrose 50 ml UD PRN IV 01/24/25 14:30 Hydrochlorothiazide 25 mg DAILY PO 01/25/25 10:00 01/27/25 09:11 25 MG Amlodipine Besylate 10 mg DAILY PO 01/25/25 10:00 01/27/25 09:10 10 MG Insulin Glargine 15 units BID@0700,2200 SC 01/26/25 22:00 01/27/25 06:30 15 UNITS Hydralazine HCl 5 mg [id number] PRN IV 01/26/25 15:30 Tamsulosin HCl 0.4 mg QPM PO 01/27/25 18:00 UNV Oxybutynin Chloride 5 mg Q12HR PO 01/27/25 22:00 UNV Examination General: The patient alert and oriented in person place and time. Patient following commands HEENT: Normocephalic, atraumatic, EOM intact, pink conjunctiva, pink moist mucous membrane Respiratory/pulmonary: Bilateral lung expansion, clear lungs bilaterally, vesicular murmurs present in almost all lung callejas, no associated crackles or wheezes. Cardiovascular: Normal RRR, normal S1 and S2 Abdomen: Abdomen nondistended, normal bowel movements, soft, pain to palpation in LLQ, no palpable masses. : Presence of Ramos draining clear urine Extremities: Pain to palpation left iliac crest, no deformities, there is no peripheral edema present at the lower extremities, normal pulses Skin: No rashes or pruritus Neurological: Intact cranial nerves with no focal neurologic deficits laboratory and microbiology Laboratory Tests 01/27/25 13:05 Test 01/27/25 13:05 Range/Units Serum Glucose 229 H 74-106 mg/dL Microbiology Date/Time Source Procedure Growth Status 01/23/25 00:46 Voided Urine Urine Culture - Final Klebsiella pneumoniae Complete Problem List/Assessment/Plan Problem List/Assessment/Plan Assessment and Plan: Acute Abdominal pain due to Acute Cystitis with Hematuria -Cefepime 1 gr IV once -Ceftriaxone 1 g IV daily -Normal saline bolus -Morphine 2 mg IV q4 hr PRN -[place] 5 mg 1 tablet q4 PO PRN -Urine culture: Klebsiella pneumoniae, sensitive to ceftriaxone History of overflow incontinence -S/p Bladder sling -Renal US: Prevoid bladder volume 1291 cc. Left hydronephrosis -Abdominal CT: mild left hydronephrosis with a nondilated appearance of the left proximal ureter. -Ramos catheter has been placed -Urology: Recommend insertion of ramos catheter, left ureteroscopic laser lithotripsy planned for Sunday Left ureterolithiasis -Abdominal CT: The mid and distal ureter are difficult to visualize, though a 9 mm calcification is seen in the expected region of the left mid ureter. -S/p left ureteroscopic laser lithotripsy and stent placement -Abdominal CT: interval placement of left ureteral stent with interval removal of the left mid ureteral stone. -Flomax 0.4 mg PO qPM Right and Left nephrolithiasis -Renal US shows no hydronephrosis, bilateral nonobstructive intrarenal calculi measuring 0.8 cm on the right and 0.5 cm on the left. Hypokalemia, 3.4 -Potassium 20 mEq PO Hypertension -Amlodipine 40 mg PO Type 2 DM with hyperglycemia, HbA1c:12% -Lantus 15 units BID -Moderate SSI -Accu-cheks -Carbohydrate consistent diet History of CVA Hyperlipidemia -Atorvastatin 40 mg PO daily Case discussed with Dr. Leach. Goals of care discussed with the patient and her daughter for over 30 minutes, she states she understands and agrees. Plan discussed with: Patient, Daughter Date of Service: Jan 27, 2025 Billing Provider: ELENI LEACH MD Common Visit Codes: [id number] INP/OBS CARE(HIGH) DIANA BATES RESIDENT Jan 27, 2025 16:12 ELENI LEACH MD Feb 01, 2025 20:37
[2025-01-27 17:00] VITALS: BP 157/82; PULSE 82; RESP 18; TEMP 98.1; O2SAT 97
[2025-01-27] MEDS: TAMSULOSIN HYDROCHLORIDE 0.4 MG CAP PO SCH (18:36)
[2025-01-27] MEDS: POTASSIUM CHL 20 Meq TABLET PO ONE (18:36)
[2025-01-27 21:00] VITALS: BP 180/91; PULSE 77; RESP 17; TEMP 98.4; O2SAT 92
[2025-01-27] MEDS: OXYBUTYNIN CHL 5 MG TAB PO SCH (21:09)
[2025-01-27] MEDS: hydrALAZINE HCL 20 MG/ML VL IV PRN (21:10)
[2025-01-27] MEDS: KETOROLAC TROMETH 30 MG/ML 1ML VIAL IV SCH (22:57)
[2025-01-28 01:00] VITALS: BP 101/54; PULSE 76; RESP 18; TEMP 97.7; O2SAT 93
[2025-01-28 05:00] VITALS: BP 131/71; PULSE 80; RESP 18; TEMP 98.6; O2SAT 93
[2025-01-28] MEDS: PANTOPRAZOLE 40 MG TAB PO SCH (05:26)
[2025-01-28 07:34] LABS: Hematocrit 39.0 % (36.0-46.0); Hemoglobin 13.5 g/dL (12.2-16.2); Mean Corpuscular Hemoglobin 31.0 pg (28.0-32.0); Mean Corpuscular Volume 89.7 fL (80.0-100.0); Nucleated Red Blood Cells % 0.1 %
[2025-01-28 07:40] LABS: Anion Gap 10 (5-15); Calcium 8.9 mg/dL (8.7-10.4); Sodium 137 mmol/L (136-145)
[2025-01-28 07:46] LABS: BUN/Creatinine Ratio 19.5 (10.0-20.0); Blood Urea Nitrogen 16 mg/dL (9-23)
[2025-01-28 07:48] LABS: Carbon Dioxide 31 mmol/L (20-31); Chloride 96 mmol/L (98-107); Glucose 230 mg/dL (74-106); Potassium 3.4 mmol/L (3.5-5.1)
[2025-01-28 09:00] VITALS: BP 154/83; PULSE 71; RESP 18; TEMP 98.6; O2SAT 95
[2025-01-28] MEDS: POTASSIUM CHL 20 Meq TABLET PO ONE (09:02)
[2025-01-28] MEDS: SODIUM CHLORIDE 0.9% 1,000 ML IV SCH (13:45)
--- NOTE | 2025-01-28 15:06 | DVH ---
Date: 01/28/2025 02:11 PM Examination: XY KUB ABDOMEN SINGLE VIEW History: Abdominal pain Comparison: CT CT AB PEL WO CON-NO ORAL OR IV on DOS: 01/27/25, XY KUB ABDOMEN SINGLE VIEW on DOS: , US KIDNEY on DOS: 01/23/25 TECHNIQUE: Frontal views of the abdomen was obtained. Findings/impression Left ureteral stent. Large volume stool throughout the colon. Pelvic vascular phleboliths. Moderate degenerate changes of the hips. Moderate bilateral sacroiliac degenerative joint disease.
[2025-01-28] MEDS: POLYETHYLENE GLYCOL 17 GM PWDR PO ONE (17:32)
[2025-01-28] MEDS: DOCUSATE SOD 100 MG CAP PO SCH (17:32)
--- NOTE | 2025-01-28 18:47 | DVHPNRES ---
Progress Note Date Seen: Jan 28, 2025 Resident Creating Document: DIANA BATES RESIDENT Medical Necessity Reason Pt with a Central, PICC or Fol: No Subjective Review of Systems A 69-year-old female with prior medical history of type 2 diabetes mellitus, hypertension, stroke 2 years ago, hyperlipidemia, recurrent UTIs and overflow incontinence, who presented to the ED with chief complaint of abdominal pain and hematuria. Patient states onset of pressure like abdominal pain, lower left quadrant, intensity 10/10, slightly with Tylenol, accompanied by chills. The day before presentation, patient states her urine began to have a strong smell and had blood and clots in it, prompting her to seek medical care. Evaluation in the ED, WBC and chemical panel are within normal range, UDS negative, UA is consistent with UTI. Abdominal CT imaging shows mild left hydronephrosis with a nondilated appearance of the left proximal ureter. Renal US shows no hydronephrosis, bilateral nonobstructive intrarenal calculi measuring 0.8 cm on the right and 0.5 cm on the left. Patient was started on IV antibiotics, pain regimen, and was admitted for further work up and follow up. Patient seen at beside. She is AOx4, states that overnight she had LLQ pain that was relieved with use of toradol and allowing her to sleep. She states she is tolerating oral diet and ambulating to the bathroom. Refers hematuria and abdominal pain on urination. Patient has hypertensive peaks associated to periods of pain. On second evaluation, patient was found to be in severe pain, referring stabbing pain in LLQ with intensity of 10/10. Abdominal KUB was ordered, which shows left ureteral stent, large volume stool throughout the colon, pelvic vascular phleboliths, and moderate degenerate changes of the hips. We will continue to monitor. Objective vital signs Vital Sign Date Time Temp Pulse Resp B/P (MAP) Pulse Ox O2 Delivery O2 Flow Rate FiO2 01/28/25 17:34 68 17 161/69 01/28/25 09:00 98.6 95 98.6 01/28/25 08:00 Room Air* 0 21 Total Intake and Output 01/27/25 01/27/25 01/28/25 15:00 23:00 07:00 Intake Total 900 ml Output Total 400 ml 350 ml 200 ml Balance -400 ml 550 ml -200 ml medications Current Medications Medications Dose Ordered Sig/Francie Route Start Time Stop Time Status Last Admin Dose Admin Acetaminophen/ Hydrocodone Bitart 1 tab Q4HP PRN PO 01/23/25 03:15 01/28/25 05:27 1 TAB Ondansetron HCl 4 mg Q4HP PRN IV 01/23/25 03:15 01/27/25 12:39 4 MG Morphine Sulfate 2 mg Q4HPRN PRN IV 01/23/25 03:15 01/28/25 17:34 2 MG Ceftriaxone Sodium 50 ml @ 100 mls/hr DAILY@09 IV 01/24/25 09:00 01/28/25 08:54 100 MLS/HR Diagnostic Test (Pha) 1 strip ACHS 01/24/25 17:00 01/28/25 17:06 1 STRIP Insulin Human Regular HS SC 01/24/25 22:00 01/27/25 21:17 6 UNITS Insulin Human Regular AC SC 01/24/25 17:00 01/28/25 17:38 6 UNITS Dextrose 50 ml UD PRN IV 01/24/25 14:30 Hydrochlorothiazide 25 mg DAILY PO 01/25/25 10:00 01/28/25 08:54 25 MG Amlodipine Besylate 10 mg DAILY PO 01/25/25 10:00 01/28/25 08:53 10 MG Insulin Glargine 15 units BID@0700,2200 SC 01/26/25 22:00 01/28/25 05:25 15 UNITS Hydralazine HCl 5 mg [id number] PRN IV 01/26/25 15:30 01/27/25 21:10 5 MG Tamsulosin HCl 0.4 mg QPM PO 01/27/25 18:00 01/28/25 17:32 0.4 MG Oxybutynin Chloride 5 mg Q12HR PO 01/27/25 22:00 01/28/25 08:54 5 MG Ketorolac Tromethamine 15 mg BID IV 01/27/25 20:30 02/01/25 20:29 01/28/25 11:29 15 MG Pantoprazole Sodium 40 mg DAILY@0600 PO 01/28/25 06:00 01/28/25 05:26 40 MG Sodium Chloride 1,000 ml @ 50 mls/hr Q20H IV 01/28/25 13:45 01/28/25 13:45 50 MLS/HR Docusate Sodium 100 mg BID PO 01/28/25 17:00 01/28/25 17:32 100 MG Polyethylene Glycol 17 gm DAILYPRN PRN PO 01/29/25 05:00 Examination General: The patient alert and oriented in person place and time. Patient following commands HEENT: Normocephalic, atraumatic, EOM intact, pink conjunctiva, pink moist mucous membrane Respiratory/pulmonary: Bilateral lung expansion, clear lungs bilaterally, vesicular murmurs present in almost all lung callejas, no associated crackles or wheezes. Cardiovascular: Normal RRR, normal S1 and S2 Abdomen: Abdomen nondistended, normal bowel movements, soft, pain to palpation in LLQ, no palpable masses. : Presence of Ramos draining clear urine Extremities: Pain to palpation left iliac crest, no deformities, there is no peripheral edema present at the lower extremities, normal pulses Skin: No rashes or pruritus Neurological: Intact cranial nerves with no focal neurologic deficits laboratory and microbiology Laboratory Tests 01/28/25 04:37 Test 01/28/25 04:37 Range/Units Serum Glucose 230 H 74-106 mg/dL Microbiology Date/Time Source Procedure Growth Status 01/23/25 00:46 Voided Urine Urine Culture - Final Klebsiella pneumoniae Complete Problem List/Assessment/Plan Problem List/Assessment/Plan Assessment and Plan: Acute Abdominal pain due to Acute Cystitis with Hematuria -Cefepime 1 gr IV once -Ceftriaxone 1 g IV daily -Normal saline bolus -Morphine 2 mg IV q4 hr PRN -[place] 5 mg 1 tablet q4 PO PRN -Urine culture: Klebsiella pneumoniae, sensitive to ceftriaxone History of overflow incontinence -S/p Bladder sling -Renal US: Prevoid bladder volume 1291 cc. Left hydronephrosis -Abdominal CT: mild left hydronephrosis with a nondilated appearance of the left proximal ureter. -Ramos catheter has been placed -Urology: Recommend insertion of ramos catheter, left ureteroscopic laser lithotripsy planned for Sunday Left ureterolithiasis -Abdominal CT: The mid and distal ureter are difficult to visualize, though a 9 mm calcification is seen in the expected region of the left mid ureter. -S/p left ureteroscopic laser lithotripsy and stent placement -Abdominal CT: interval placement of left ureteral stent with interval removal of the left mid ureteral stone. -Flomax 0.4 mg PO qPM -Abdominal KUB: left ureteral stent, large volume stool throughout the colon, pelvic vascular phleboliths, moderate degenerate changes of the hips, moderate bilateral sacroiliac degenerative joint disease. Right and Left nephrolithiasis -Renal US shows no hydronephrosis, bilateral nonobstructive intrarenal calculi measuring 0.8 cm on the right and 0.5 cm on the left. Hypokalemia, 3.4 -Potassium 20 mEq PO Hypertension -Amlodipine 40 mg PO Type 2 DM with hyperglycemia, HbA1c:12% -Lantus 15 units BID -Moderate SSI -Accu-cheks -Carbohydrate consistent diet Constipation -Colace 100 mg BID -Miralax 17 g PO daily History of CVA Hyperlipidemia -Atorvastatin 40 mg PO daily Case discussed with Dr. Leach. Goals of care discussed with the patient and her daughter for over 30 minutes, she states she understands and agrees. Plan discussed with: Patient My Orders My Orders Orders - DIANA BATES RESIDENT Procedure Category Date Status Time Kub Abdomen Single XY 01/28/25 Resulted View 13:57 Docusate Sodium PHA 01/28/25 In Process Capsule (Colace 17:00 Polyethylene Glycol PHA 01/29/25 In Process 17g Powder (Miralax 05:00 Complete Blood Count LAB 01/29/25 Verified 04:00 Basic Metabolic Panel LAB 01/29/25 Verified 04:00 Dietary Evaluation Review Comments: Nutrition recommendation 1) CCHO 60gm + cardiac 2) Refer [employer] for diabetes education 3) Monitor lab values, wt trends, skin trends, Expected Outcomes/Goals: To meet >75% estimated needs Lab values to improve Fu 3-5 days Date of Service: Jan 28, 2025 Billing Provider: ELENI LEACH MD Common Visit Codes: [id number] INP/OBS CARE(MOD) DIANA BATES RESIDENT Jan 28, 2025 18:47 ELENI LEACH MD Feb 01, 2025 20:38
[2025-01-28 20:00] VITALS: PULSE 75; RESP 18; O2SAT 94
[2025-01-28 21:00] VITALS: BP 124/73; PULSE 75; RESP 16; TEMP 98.1; O2SAT 94
[2025-01-29] VITALS (7 sets, daily range): BP systolic 114–148; BP diastolic 58–81; PULSE 69–94; RESP 16–19; TEMP 97.5–98.3; O2SAT 96–98
[2025-01-29 07:57] LABS: Hematocrit 39.9 % (36.0-46.0); Hemoglobin 13.5 g/dL (12.2-16.2); Mean Corpuscular Hemoglobin 30.5 pg (28.0-32.0); Mean Corpuscular Volume 90.0 fL (80.0-100.0); Nucleated Red Blood Cells % 0.0 %
[2025-01-29 08:10] LABS: Anion Gap 6 (5-15); Chloride 101 mmol/L (98-107); Potassium 3.7 mmol/L (3.5-5.1); Sodium 141 mmol/L (136-145)
[2025-01-29 08:11] LABS: Calcium 8.8 mg/dL (8.7-10.4)
[2025-01-29 08:16] LABS: BUN/Creatinine Ratio 17.4 (10.0-20.0); Blood Urea Nitrogen 12 mg/dL (9-23)
[2025-01-29 08:21] LABS: Carbon Dioxide 34 mmol/L (20-31); Glucose 157 mg/dL (74-106)
--- NOTE | 2025-01-29 15:43 | DVHPN2 ---
Progress Note - Dictate Date Seen: Jan 29, 2025 Medical Necessity Reason Pt with a Central, PICC or Fol: Yes The following are medically ne: Almanza Catheter vital signs Vital Sign Date Time Temp Pulse Resp B/P (MAP) Pulse Ox O2 Delivery O2 Flow Rate FiO2 01/29/25 13:00 98.2 79 16 143/79 (100) 98 98.2 01/29/25 08:00 Room Air* 0 21 Total Intake and Output 01/28/25 01/28/25 01/29/25 15:00 23:00 07:00 Intake Total 50 ml Output Total 550 ml Balance 50 ml -550 ml medications Current Medications Medications Dose Ordered Sig/Francie Route Start Time Stop Time Status Last Admin Dose Admin Acetaminophen/ Hydrocodone Bitart 1 tab Q4HP PRN PO 01/23/25 03:15 01/28/25 05:27 1 TAB Ondansetron HCl 4 mg Q4HP PRN IV 01/23/25 03:15 01/27/25 12:39 4 MG Morphine Sulfate 2 mg Q4HPRN PRN IV 01/23/25 03:15 01/29/25 05:38 2 MG Ceftriaxone Sodium 50 ml @ 100 mls/hr DAILY@09 IV 01/24/25 09:00 01/29/25 12:02 100 MLS/HR Diagnostic Test (Pha) 1 strip ACHS 01/24/25 17:00 01/29/25 11:30 1 STRIP Insulin Human Regular HS SC 01/24/25 22:00 01/28/25 21:38 6 UNITS Insulin Human Regular AC SC 01/24/25 17:00 01/29/25 12:01 9 UNITS Dextrose 50 ml UD PRN IV 01/24/25 14:30 Hydrochlorothiazide 25 mg DAILY PO 01/25/25 10:00 01/29/25 11:09 25 MG Amlodipine Besylate 10 mg DAILY PO 01/25/25 10:00 01/29/25 11:09 10 MG Insulin Glargine 15 units BID@0700,2200 SC 01/26/25 22:00 01/29/25 06:36 15 UNITS Hydralazine HCl 5 mg [id number] PRN IV 01/26/25 15:30 01/27/25 21:10 5 MG Tamsulosin HCl 0.4 mg QPM PO 01/27/25 18:00 8/6/25 17:32 0.4 MG Oxybutynin Chloride 5 mg Q12HR PO 01/27/25 22:00 01/29/25 11:09 5 MG Ketorolac Tromethamine 15 mg BID IV 01/27/25 20:30 02/01/25 20:29 01/29/25 12:03 15 MG Pantoprazole Sodium 40 mg DAILY@0600 PO 01/28/25 06:00 01/29/25 05:37 40 MG Sodium Chloride 1,000 ml @ 50 mls/hr Q20H IV 01/28/25 13:45 01/28/25 13:45 50 MLS/HR Docusate Sodium 100 mg BID PO 01/28/25 17:00 01/29/25 11:09 100 MG Polyethylene Glycol 17 gm DAILYPRN PRN PO 01/29/25 05:00 laboratory and microbiology Laboratory Tests 01/29/25 06:37 Test 01/29/25 06:37 Range/Units Serum Glucose 157 H 74-106 mg/dL [place] [address] Ph: [phone] DIAGNOSTIC IMAGING Diagnostic Imaging Report : [id number] Signed PATIENT: SMOOTH AYERSACCT: [id number] UNIT: [id number] : 1955 [facility] / BED: [address] [place] [address] AGE / SEX: 69 / F ADM STATUS: ADM IN SERVICE 0910 ORDERING PHYSICIAN: AMELIA GRULLON MD PROCEDURE(s): ABPL - CT AB PEL WO CON-NO ORAL OR IV REASON: left renal stone ORDER NUMBER(s): [id number], ACCESSION NUMBER(s): [id number] CT CT AB PEL WO CON-NO ORAL OR IV INDICATION: left renal stone EXAM DATE: 01/27/2025 09:27 AM COMPARISON: CT CT AB PEL WO CON-NO ORAL OR IV on DOS: 01/23/25 RADIATION DOSE: CTDIvol: 11.75 mGy, DLP: 644.55 mGy*cm PROCEDURE: Helical CT images were obtained of the abdomen and pelvis without IV contrast Sagittal and coronal reconstructions are provided. ORAL CONTRAST: None. ADDITIONAL IMAGES / REFORMATS: None All CT scans at this medical facility are performed using dose modulation techniques as appropriate to a performed exam including the following: Automated exposure control was utilized; adjustment of the MA and/or KV according to patient size; and use of iterative reconstruction technique. FINDINGS: LUNG BASE: Bibasilar atelectasis. LIVER: Normal. GALLBLADDER AND BILIARY TREE: No calcified gallstones. Normal caliber wall. No intra- or extrahepatic biliary ductal dilation. PANCREAS: Normal. SPLEEN: Normal. BOWEL: Normal. Partially visualized appendix appears normal. ADRENALS: Normal. KIDNEYS AND URETER: Interval placement of a left ureteral stent with interval removal of a left mid ureteral stone. BLADDER: Normal. REPRODUCTIVE ORGANS: Normal. LYMPH NODES:No lymphadenopathy. PERITONEUM: No ascites or free air. No other fluid collection. VESSELS: Scattered atherosclerotic calcifications are noted. RETROPERITONEUM: Normal. ABDOMINAL WALL: Normal. BONES: Scattered osseous degenerative changes are noted. IMPRESSION: Interval placement of a left ureteral stent with interval removal of a left mid ureteral stone. ATED BY: ABHISHEK HOWELL MD Problems(with codes): (1) Hydronephrosis (2) Hematuria (3) UTI (urinary tract infection) (4) KHANH (acute kidney injury) Dietary Evaluation Review Comments: Nutrition recommendation 1) CCHO 60gm + cardiac 2) Refer [employer] for diabetes education 3) Monitor lab values, wt trends, skin trends, Expected Outcomes/Goals: To meet >75% estimated needs Lab values to improve Fu 3-5 days Plan discussed with: Patient NAEEMKACIE Esposito [employer] Jan 29, 2025 15:43
[2025-01-29 16:50] LABS: Urine Protein, UAD 1+ (Negative)
--- NOTE | 2025-01-29 19:06 | DVHPNRES ---
Progress Note Date Seen: Jan 29, 2025 Resident Creating Document: DIANA BATES RESIDENT Medical Necessity Reason Pt with a Central, PICC or Fol: Yes The following are medically ne: Ramos Catheter Subjective Review of Systems A 69-year-old female with prior medical history of type 2 diabetes mellitus, hypertension, stroke 2 years ago, hyperlipidemia, recurrent UTIs and overflow incontinence, who presented to the ED with chief complaint of abdominal pain and hematuria. Patient states onset of pressure like abdominal pain, lower left quadrant, intensity 10/10, slightly with Tylenol, accompanied by chills. The day before presentation, patient states her urine began to have a strong smell and had blood and clots in it, prompting her to seek medical care. Evaluation in the ED, WBC and chemical panel are within normal range, UDS negative, UA is consistent with UTI. Abdominal CT imaging shows mild left hydronephrosis with a nondilated appearance of the left proximal ureter. Renal US shows no hydronephrosis, bilateral nonobstructive intrarenal calculi measuring 0.8 cm on the right and 0.5 cm on the left. Patient was started on IV antibiotics, pain regimen, and was admitted for further work up and follow up. Patient seen at bedside. Patient is AOx4, patient states she feels well, pain has improved significantly, last episode of severe pain was the day prior at 3:00 p.m.. Has been able to sleep, ambulate around her room, and is tolerated oral diet. Adverse events overnight. Vitals have remained stable, labs are within normal range. Per nurse's note and the patient she is still presenting hematuria. Follow-up urinalysis has been ordered. We will continue current management, possible DC tomorrow. Objective vital signs Vital Sign Date Time Temp Pulse Resp B/P (MAP) Pulse Ox O2 Delivery O2 Flow Rate FiO2 01/29/25 16:53 98.3 73 18 136/74 (94) 96 98.3 01/29/25 08:00 Room Air* 0 21 Total Intake and Output 01/28/25 01/28/25 01/29/25 15:00 23:00 07:00 Intake Total 50 ml Output Total 550 ml Balance 50 ml -550 ml medications Current Medications Medications Dose Ordered Sig/Francie Route Start Time Stop Time Status Last Admin Dose Admin Acetaminophen/ Hydrocodone Bitart 1 tab Q4HP PRN PO 01/23/25 03:15 01/29/25 17:43 1 TAB Ondansetron HCl 4 mg Q4HP PRN IV 01/23/25 03:15 01/27/25 12:39 4 MG Morphine Sulfate 2 mg Q4HPRN PRN IV 01/23/25 03:15 01/29/25 05:38 2 MG Ceftriaxone Sodium 50 ml @ 100 mls/hr DAILY@09 IV 01/24/25 09:00 01/29/25 12:02 100 MLS/HR Diagnostic Test (Pha) 1 strip ACHS 01/24/25 17:00 01/29/25 17:00 1 STRIP Insulin Human Regular HS SC 01/24/25 22:00 01/28/25 21:38 6 UNITS Insulin Human Regular AC SC 01/24/25 17:00 01/29/25 17:44 9 UNITS Dextrose 50 ml UD PRN IV 01/24/25 14:30 Hydrochlorothiazide 25 mg DAILY PO 01/25/25 10:00 01/29/25 11:09 25 MG Amlodipine Besylate 10 mg DAILY PO 01/25/25 10:00 01/29/25 11:09 10 MG Insulin Glargine 15 units BID@0700,2200 SC 01/26/25 22:00 01/29/25 06:36 15 UNITS Hydralazine HCl 5 mg [id number] PRN IV 01/26/25 15:30 01/27/25 21:10 5 MG Tamsulosin HCl 0.4 mg QPM PO 01/27/25 18:00 01/29/25 17:43 0.4 MG Oxybutynin Chloride 5 mg Q12HR PO 01/27/25 22:00 01/29/25 11:09 5 MG Ketorolac Tromethamine 15 mg BID IV 01/27/25 20:30 02/01/25 20:29 01/29/25 12:03 15 MG Pantoprazole Sodium 40 mg DAILY@0600 PO 01/28/25 06:00 01/29/25 05:37 40 MG Sodium Chloride 1,000 ml @ 50 mls/hr Q20H IV 01/28/25 13:45 01/28/25 13:45 50 MLS/HR Docusate Sodium 100 mg BID PO 01/28/25 17:00 01/29/25 11:09 100 MG Polyethylene Glycol 17 gm DAILYPRN PRN PO 01/29/25 05:00 laboratory and microbiology Laboratory Tests 01/29/25 06:37 Test 01/29/25 06:37 Range/Units Serum Glucose 157 H 74-106 mg/dL Microbiology Date/Time Source Procedure Growth Status 01/23/25 00:46 Voided Urine Urine Culture - Final Klebsiella pneumoniae Complete Problem List/Assessment/Plan Problem List/Assessment/Plan Assessment and Plan: Acute Abdominal pain due to Acute Cystitis with Hematuria -Cefepime 1 gr IV once -Ceftriaxone 1 g IV daily -Normal saline bolus -Morphine 2 mg IV q4 hr PRN -Delaplaine 5 mg 1 tablet q4 PO PRN -Urine culture: Klebsiella pneumoniae, sensitive to ceftriaxone History of overflow incontinence -S/p Bladder sling -Renal US: Prevoid bladder volume 1291 cc. Left hydronephrosis -Abdominal CT: mild left hydronephrosis with a nondilated appearance of the left proximal ureter. -Ramos catheter has been placed -Urology: Recommend insertion of ramos catheter, left ureteroscopic laser lithotripsy planned for Sunday Left ureterolithiasis -Abdominal CT: The mid and distal ureter are difficult to visualize, though a 9 mm calcification is seen in the expected region of the left mid ureter. -S/p left ureteroscopic laser lithotripsy and stent placement -Abdominal CT: interval placement of left ureteral stent with interval removal of the left mid ureteral stone. -Flomax 0.4 mg PO qPM -Abdominal KUB: left ureteral stent, large volume stool throughout the colon, pelvic vascular phleboliths, moderate degenerate changes of the hips, moderate bilateral sacroiliac degenerative joint disease. Right and Left nephrolithiasis -Renal US shows no hydronephrosis, bilateral nonobstructive intrarenal calculi measuring 0.8 cm on the right and 0.5 cm on the left. Hypokalemia, 3.4, resolved -Potassium 20 mEq PO Hypertension -Amlodipine 40 mg PO Type 2 DM with hyperglycemia, HbA1c:12% -Lantus 15 units BID -Moderate SSI -Accu-cheks -Carbohydrate consistent diet Constipation -Colace 100 mg BID -Miralax 17 g PO daily History of CVA Hyperlipidemia -Atorvastatin 40 mg PO daily Case discussed with Dr. Leach. Plan discussed with: Patient Dietary Evaluation Review Comments: Nutrition recommendation 1) CCHO 60gm + cardiac 2) Refer Materials Handling Equipment Operator for diabetes education 3) Monitor lab values, wt trends, skin trends, Expected Outcomes/Goals: To meet >75% estimated needs Lab values to improve Fu 3-5 days Date of Service: Jan 29, 2025 Billing Provider: ELENI LEACH MD Common Visit Codes: [id number] INP/OBS CARE(MOD) DIANA BATES RESIDENT Jan 29, 2025 19:06 ELENI LEACH MD Feb 01, 2025 21:49
[2025-01-29] MEDS: POLYETHYLENE GLYCOL 17 GM PWDR PO PRN (21:36)
[2025-01-30 05:00] VITALS: BP 146/78; PULSE 68; RESP 16; TEMP 98.6; O2SAT 94
[2025-01-30 08:00] VITALS: PULSE 71; RESP 18; O2SAT 97
[2025-01-30 09:00] VITALS: BP 144/113; PULSE 71; RESP 18; TEMP 98; O2SAT 97
[2025-01-30 13:00] VITALS: BP 138/75; PULSE 65; RESP 18; TEMP 97.8; O2SAT 96
[2025-01-30] MEDS ORDERED: ATOR20TA50 PO (14:28)
[2025-01-30] MEDS ORDERED: INSLANTI SC (14:28)
[2025-01-30] MEDS ORDERED: TAMS-35 PO (14:28)
[2025-01-30] MEDS ORDERED: AML5T PO (14:28)
[2025-01-30] MEDS ORDERED: ASPI1TAB20 PO (14:28)
[2025-01-30] MEDS ORDERED: HYDR25TA5 PO (14:28)
[2025-01-30] MEDS ORDERED: INSREGI SC (14:28)
[2025-01-30 15:31] VITALS: BP 138/75; PULSE 65; RESP 18; TEMP 97.8; O2SAT 96
--- NOTE | 2025-01-30 17:59 | DVHDSRES ---
Discharge Summary Date of Admission Resident Creating Document: DIANA BATES RESIDENT Jan 23, 2025 at 03:07 Date of Discharge: Jan 25, 2025 Admitting Diagnosis Acute Abdominal Pain Labs/Diagnostic Data: Laboratory Results Test 01/30/25 11:26 01/29/25 16:36 01/29/25 06:37 01/26/25 05:38 POC Glucose 263 mg/dl (70-106) Urine Color Light-brown (Yellow) Urine Clarity Clear (Clear) Urine pH 6.5 (5.0-9.0) Urine Specific [place] 1.005 (1.001-1.035) Urine Protein 1+ (Negative) Urine Ketones Negative (Negative) Urine Blood 3+ /uL (Negative) Urine Nitrite Negative (Negative) Urine Bilirubin Negative (Negative) Urine Urobilinogen Normal mg/dL (Negative) Urine Leukocyte Esterase 2+ /uL (Negative) Urine RBC 16 /hpf (0 - 4) Urine Microscopic WBC 49 /HPF (0-5) Urine Squamous Epithelial Cells Few /hpf (<5) Urine Bacteria Few /hpf (None Seen) Urine Glucose 4+ mg/dL (Normal) White Blood Count 7.5 10^3/uL (4.4-10.8) Red Blood Count 4.43 10^6/uL (4.0-5.20) Hemoglobin 13.5 g/dL (12.2-16.2) Hematocrit 39.9 % (36.0-46.0) Mean Corpuscular Volume 90.0 fL (80.0-100.0) Mean Corpuscular Hemoglobin 30.5 pg (28.0-32.0) Mean Corpuscular Hemoglobin Concent 34.0 g/dL (32.0-36.0) Red Cell Distribution Width 13.8 % (11.8-14.3) Platelet Count 177 10^3/uL (140-450) Mean Platelet Volume 10.0 fL (6.9-10.8) Neutrophils (%) (Auto) 63.9 % (37.0-80.0) Lymphocytes (%) (Auto) 22.8 % (10.0-50.0) Monocytes (%) (Auto) 8.1 % (0.0-12.0) Eosinophils (%) (Auto) 4.4 % (0.0-7.0) Basophils (%) (Auto) 0.8 % (0.0-2.0) Neutrophils # (Auto) 4.8 10 ^3/uL (1.6-8.6) Lymphocytes # (Auto) 1.7 10 ^3/uL (0.4-5.4) Monocytes # (Auto) 0.6 10 ^3/uL (0-1.3) Eosinophils # (Auto) 0.3 10 ^3/uL (0-0.8) Basophils # (Auto) 0.1 10 ^3/uL (0-0.2) Nucleated Red Blood Cells 0.0 % Sodium Level 141 mmol/L (136-145) Potassium Level 3.7 mmol/L (3.5-5.1) Chloride Level 101 mmol/L (98-107) Carbon Dioxide Level 34 mmol/L (20-31) Anion Gap 6 (5-15) Blood Urea Nitrogen 12 mg/dL (9-23) Creatinine 0.69 mg/dL (0.550-1.02) Glomerular Filtration Rate Calc 95 mL/min (>90) BUN/Creatinine Ratio 17.4 (10.0-20.0) Serum Glucose 157 mg/dL (74-106) Calcium Level 8.8 mg/dL (8.7-10.4) Prothrombin Time 10.3 sec (9.3-11.8) Prothrombin Time INR 0.97 (0.9-1.15) Activated Partial Thromboplast Time 28.5 SEC (24.5-34.5) Test 01/23/25 00:46 01/23/25 00:45 Urine Opiates Screen Neg (NEGATIVE) Urine Fentanyl Screen Neg (NEGATIVE) Urine Barbiturates Screen Neg (NEGATIVE) Urine Phencyclidine Screen Neg (NEGATIVE) Urine Amphetamines Screen Neg (NEGATIVE) Urine Benzodiazepines Screen Neg (NEGATIVE) Urine Cocaine Screen Neg (NEGATIVE) Urine Cannabinoids Screen Neg (NEGATIVE) Hemoglobin A1c 12.1 % A1C (<5.7) Other Laboratory Tests 01/29/25 06:37 Brief Hx & Hospital Course: A 69-year-old female with prior medical history of type 2 diabetes mellitus, hypertension, stroke 2 years ago, hyperlipidemia, recurrent UTIs and overflow incontinence, who presented to the ED with chief complaint of abdominal pain and hematuria. Patient states onset of pressure like abdominal pain, lower left quadrant, intensity 10/10, slightly with Tylenol, accompanied by chills. The day before presentation, patient states her urine began to have a strong smell and had blood and clots in it, prompting her to seek medical care. Evaluation in the ED, WBC and chemical panel are within normal range, UDS negative, UA is consistent with UTI. Abdominal CT imaging shows mild left hydronephrosis with a nondilated appearance of the left proximal ureter, Low in 9 mm calcification is seen in the expected region of the left mid ureter. Renal US shows no hydronephrosis, bilateral nonobstructive intrarenal calculi measuring 0.8 cm on the right and 0.5 cm on the left. Patient was started on IV antibiotics, pain regimen, and was admitted for further work up and follow up. On admission, patient continued to complain of intense lower left quadrant pain, Dysuria, and some hematuria. Urology consult was placed and it was decided that the patient would undergo a ureterolithotripsy. Patient underwent procedure on 01/26/2025 with placement of ureteral stent. after the procedure, the patient presented with pain in her left lower quadrant and hematuria. Follow-up imaging was done with CT abdomen is showing interval placement of left ureteral stent with interval removal of left mid ureteral stone and abdominal KUB showing left ureteral stent following of stool throughout the colon. pain regimen was adjusted and was placed on a bowel regimen. Patient has progressed favorably. on evaluation today, patient states that she feels better, pain is controlled, and hematuria has improved. she is tolerating oral diet, is ambulating around her room, and is having bowel movements. vitals have been stable, and labs are within normal range. she is considered stable for discharge home with medication for pain control and home medications. She will follow up with Urology outpatient. Recommended to follow up with her PCP within 1-2 weeks. All medications and recommendations have been thoroughly explained to the patient. She states she understands and agrees. General: The patient alert and oriented in person place and time. Patient following commands HEENT: Normocephalic, atraumatic, EOM intact, pink conjunctiva, pink moist mucous membrane Respiratory/pulmonary: Bilateral lung expansion, clear lungs bilaterally, vesicular murmurs present in almost all lung callejas, no associated crackles or wheezes. Cardiovascular: Normal RRR, normal S1 and S2 Abdomen: Abdomen nondistended, normal bowel movements, soft, no pain to palpation in any of the abdominal quadrants, no palpable masses. : Presence of [place] draining clear urine Extremities: Pain to palpation left iliac crest, no deformities, there is no peripheral edema present at the lower extremities, normal pulses Skin: No rashes or pruritus Neurological: Intact cranial nerves with no focal neurologic deficits Case discussed with Dr. Leach. Goals of care discussed with the patient for over 30 minutes. Operations or Procedures PROCEDURE(s): KIDUS - KIDNEY REASON: Hematuria ORDER NUMBER(s): [id number], ACCESSION NUMBER(s): [id number] INDICATION: Hematuria TECHNIQUE: Multiple real-time sonographic images of the kidneys and bladder were obtained. COMPARISON: CT of the abdomen pelvis performed same date. FINDINGS: The right kidney measures 11.7 cm in length, which is normal in size. There is normal echogenicity of the right kidney. There are few echogenic foci measuring the largest measuring 0.8 cm. No hydronephrosis. The left kidney measures 12.3 cm in length, which is normal in size. There is normal echogenicity of the left kidney. There are few echogenic foci the largest measuring 0.5 cm. No hydronephrosis. No large intraluminal masses are seen in the bladder. Bilateral ureteral jets are identified. Prior to voiding the bladder volume measures volume 1291 cc. IMPRESSION: 1. No hydronephrosis. Bilateral nonobstructive intrarenal calculi measuring 0.8 cm on the right and 0.5 cm on the left. PROCEDURE(s): PELUS - PELVIC REASON: R/o Compliance Director source of bleeding ORDER NUMBER(s): [id number], ACCESSION NUMBER(s): [id number] EXAM DESCRIPTION: TRANSABDOMINAL AND TRANSVAGINAL PELVIC ULTRASOUND CLINICAL HISTORY: R/o Compliance Director source of bleeding COMPARISON: CT CT AB PEL WO CON-NO ORAL OR IV on DOS: 01/23/25 TECHNIQUE: Transabdominal and transvaginal ultrasound examination of the pelvis was performed. LMP: Postmenopausal FINDINGS: Uterus: 8.8 X 4.3 X 3.7 Cm. 9 mm hypoechoic lesion at the lower uterine segment, possibly a small fibroid Endometrial echo complex: 0.35 cm. Small amount of fluid within the endometrial canal. The ovaries are not visualized bilaterally. Intrapelvic free fluid: Trace fluid in the cul-de-sac IMPRESSION: 1. Small amount of fluid in the endometrial canal which may suggest cervical stenosis versus obstruction. Recommend correlation with direct visualization. 2. Possible small uterine fibroid 3. The ovaries are not visualized PROCEDURE(s): CXRP - CHEST PORTABLE REASON: PRE OP ORDER NUMBER(s): [id number], ACCESSION NUMBER(s): [id number] EXAM: XY CHEST PORTABLE TECHNIQUE: Single frontal chest radiograph CLINICAL HISTORY: PRE OP COMPARISON: None Findings/Impression: Frontal chest radiograph demonstrates no acute osseous or superficial soft tissue abnormalities. The trachea is midline. The cardiac silhouette and mediastinum are within normal limits. Bibasilar atelectasis. No pneumothorax, pleural effusions, or consolidations. PROCEDURE(s): CARM1 - C ARM FLUOROSCOPY UP TO 60MIN REASON: LEFT URETEROSCOPY & STENT PLACEMENT ORDER NUMBER(s): [id number], ACCESSION NUMBER(s): [id number] C-ARM FLUOROSCOPY: PROCEDURE: Internal ureteral stent placement, left FLUOROSCOPY TIME: 85.3 seconds DAP: 19.8 mgy FINDINGS: Spot intraoperative C arm radiographs demonstrating left internal ureteral stent placement. IMPRESSION: Please refer to surgical report for detailed findings. PROCEDURE(s): ABPL - CT AB PEL WO CON-NO ORAL OR IV REASON: left renal stone ORDER NUMBER(s): [id number], ACCESSION NUMBER(s): [id number] CT CT AB PEL WO CON-NO ORAL OR IV INDICATION: left renal stone EXAM DATE: 01/27/2025 09:27 AM COMPARISON: CT CT AB PEL WO CON-NO ORAL OR IV on DOS: 01/23/25 RADIATION DOSE: CTDIvol: 11.75 mGy, DLP: 644.55 mGy*cm PROCEDURE: Helical CT images were obtained of the abdomen and pelvis without IV contrast Sagittal and coronal reconstructions are provided. ORAL CONTRAST: None. ADDITIONAL IMAGES / REFORMATS: None All CT scans at this medical facility are performed using dose modulation techniques as appropriate to a performed exam including the following: Automated exposure control was utilized; adjustment of the MA and/or KV according to patient size; and use of iterative reconstruction technique. FINDINGS: LUNG BASE: Bibasilar atelectasis. LIVER: Normal. GALLBLADDER AND BILIARY TREE: No calcified gallstones. Normal caliber wall. No intra- or extrahepatic biliary ductal dilation. PANCREAS: Normal. SPLEEN: Normal. BOWEL: Normal. Partially visualized appendix appears normal. ADRENALS: Normal. KIDNEYS AND URETER: Interval placement of a left ureteral stent with interval removal of a left mid ureteral stone. BLADDER: Normal. REPRODUCTIVE ORGANS: Normal. LYMPH NODES:No lymphadenopathy. PERITONEUM: No ascites or free air. No other fluid collection. VESSELS: Scattered atherosclerotic calcifications are noted. RETROPERITONEUM: Normal. ABDOMINAL WALL: Normal. BONES: Scattered osseous degenerative changes are noted. IMPRESSION: Interval placement of a left ureteral stent with interval removal of a left mid ureteral stone. PROCEDURE(s): KUB - KUB ABDOMEN SINGLE VIEW REASON: Abdominal pain ORDER NUMBER(s): [id number], ACCESSION NUMBER(s): [id number] Date: 01/28/2025 02:11 PM Examination: XY KUB ABDOMEN SINGLE VIEW History: Abdominal pain Comparison: CT CT AB PEL WO CON-NO ORAL OR IV on DOS: 01/27/25, XY KUB ABDOMEN SINGLE VIEW on DOS: 01/26/25, US KIDNEY on DOS: 01/23/25 TECHNIQUE: Frontal views of the abdomen was obtained. Findings/impression Left ureteral stent. Large volume stool throughout the colon. Pelvic vascular phleboliths. Moderate degenerate changes of the hips. Moderate bilateral sacroiliac degenerative joint disease. OPERATIVE REPORT Pre-op. Diagnosis: Left mid ureteral calculus, 9 mm left flank pain urinary retention secondary to prior sling operation Post-op. Diagnosis: Same as pre-op diagnosis Operation: left ureteroscopy/pyeloscopy cystoscopy with left retrograde pyelogram and left ureteral stent placement Anesthesia: general Dr. Page Indications: patient admitted for left-sided flank pain due to a 9 mm left mid ureteral calculus is to undergo left ureteroscope epic laser lithotripsy and stent placement. The indications, risks, alternative, benefits, and complications of ureteroscope with laser lithotripsy and stent placement are discussed with patient. All questions were encouraged and answered. She elected to proceed. Details of Procedure: After obtaining the consent, the patient was taken to the operating room and underwent general anesthesia. She was placed in dorsal lithotomy position with the area of the genitalia prepped and draped in usual sterile manner. Twenty-one Lithuanian rigid cystoscope was used to inspect the urethra and the bladder. The left ureteric orifice was cannulated with sensory guidewire and advanced proximally. On fluoroscopy the stone had migrated distally. The cystoscope was then removed. Rigid ureteroscope was utilized to access the left distal ureter. During the access, the stone migrated proximally due to the irrigation. The stone was no longer identified in the distal ureter. Next a flexible digital ureteroscope was used to inspect the ureter and renal pelvis. All the calices were evaluated and I was unable to identify the stone on fluoroscopy or endoscopically. After several attempts, I decided to abort the procedure with a stent left in place. Guidewire was then placed into the renal system and the ureteroscope was removed. The guidewire was backloaded onto the cystoscope and under direct vision, six [place]ian by 24 cm polaris loop ureteral stent was placed. Bladder was decompressed. Patient was awakened and taken to recovery room in stable condition Specimens: none Complications: none Findings: 6 x 24 cm polaris loop ureteral stent placed Notes: we will re-evaluate the stone position with postoperative KUB versus CT scan as outpatient AMELIA GRULLON MD Jan 26, 2025 15:02 Condition at Discharge: Stable Final Diagnosis/Problems List Acute abdominal pain secondary to ureterolithiasis Acute Cystitis with Hematuria History of overflow incontinence Left hydronephrosis Left ureterolithiasis Right and Left nephrolithiasis Hypertension Type 2 DM with hyperglycemia, HbA1c:12% -Lantus 15 units BID -Moderate SSI -Accu-cheks -Carbohydrate consistent diet History of CVA Hyperlipidemia Discharge Disposition: Home Discharge Instruct/Medications Diet: Consistent carbohydrate Activity: No Restrictions, As Tolerated Follow Up/Referral: Follow up with urology outpatient in 1-2 weeks Follow up with your PCP in 1-2 weeks. Medications: [place] Aspirin 81 mg PO daily Atorvastatin 20 mg PO daily Hydrocholorthiazide 25 mg PO daily Insulin Lantus 15 units SC Insulin lispro SC Metformin 1000 mg PO daily Tamsulosin 0.4 mg PO 20 days BEnicar 40 mg PO daily Amlodipine 10 mg PO daily Hydrocholorthiazide 25 mg PO daily Scheduled Amlodipine Besylate (Norvasc Tablet), 10 MG PO DAILY Aspirin (Aspir-81), 1 TAB PO DAILY Atorvastatin Calcium (Atorvastatin Calcium), 1 TAB PO DAILY Hctz (Hydrochlorothiazide), 25 MG PO DAILY Insulin Glargine (Lantus), 15 UNITS SC BID@0700,2200 Insulin Regular (Human) (Novolin R), 0 UNITS SC HS Metformin Hydrochloride (Metformin Hcl), 1 TAB PO DAILY, (Reported) Olmesartan Medoxomil (Benicar), 1 TAB PO DAILY, (Reported) Tamsulosin Hcl (Flomax), 0.4 MG PO QPM Miscellaneous Medications Insulin Glargine (Lantus Solostar), SC, (Reported) Insulin Lispro (Insulin Lispro Kwikpen), SC, (Reported) Discontinued Medications Chlorthalidone (Chlorthalidone), 25 MG PO, (Reported) Discharge Statement: "Patient was advised to return to the ER or call 911 if any headaches, dizziness, shortness of breath, chest pain, abdominal pain, bleeding, fevers, or worsening of medical condition. Patient was counseled about treatment plan, medications, possible side effects, patientverbalized understanding. All questions were answered to the best of my ability. This discharge took greater then 30 minutes in planning, reviewing documentation, counseling the patient, and discussing with other team members." ASSESSMENT ASSESSMENT Assessment Acute abdominal pain secondary to ureterolithiasis Date of Service: Jan 30, 2025 Billing Provider: ELENI ELACH MD Common Visit Codes: 53054-EUI/OBS DISCH DAY >30min DIANA BATES RESIDENT Jan 30, 2025 17:59 ELENI LEACH MD Feb 01, 2025 21:50
[2025-02-05] MEDS ORDERED: HYDR-4902 PO (08:55)
== END 2025-01-30 16:30 | disposition home or self-care (01) | DRG 661 ==
LOC: ER 00:26 → OVERFLOW 03:07 → WEST WING 17:42
PROVIDERS: ADMIT Internal Medicine Geriatric Medicine; ATTEND Urology
PROC: BT1F1ZZ Fluoroscopy of Left Kidney, Ureter and Bladder using Low Osmolar Contrast (ICD-10-PCS; 2025-01-26)
PROC: 0T778DZ Dilation of Left Ureter with Intraluminal Device, Via Natural or Artificial Opening Endoscopic (ICD-10-PCS; principal; 2025-01-26 13:54)
DX: N13.6 Pyonephrosis (principal); E11.65 Type 2 diabetes mellitus with hyperglycemia; I10 Essential (primary) hypertension; N17.9 Acute kidney failure, unspecified; I87.8 Other specified disorders of veins; E78.5 Hyperlipidemia, unspecified; E11.9 Type 2 diabetes mellitus without complications; B96.1 Klebsiella pneumoniae [K. pneumoniae] as the cause of diseases classified elsewhere; Z86.73 Personal history of transient ischemic attack (TIA), and cerebral infarction without residual deficits; Z83.3 Family history of diabetes mellitus; Z82.49 Family history of ischemic heart disease and other diseases of the circulatory system; Z82.3 Family history of stroke; Z79.82 Long term (current) use of aspirin; Z79.4 Long term (current) use of insulin; Z79.84 Long term (current) use of oral hypoglycemic drugs; Z79.899 Other long term (current) drug therapy
CPT/HCPCS: 36415; 71045; 74018; 74176; 76000; 76775; 76856; 80048; 80307; 81001; 82962; 83036; 85025; 85610; 85730; 86850; 86900; 86901; 87086; 87088; 87186; 93005; A4344; G0378; J0330; J1815; J1885; J2250; J2405; J2704

== ENCOUNTER 2025-04-27 10:44 | Emergency (ER) | payer MEDICARE, MEDICAID ==
[~2025-04-27] VITALS: Ht 157.5 cm; Wt 67.1 kg
[~2025-04-27 10:44] MED LIST: AML5T PO; ASPI1TAB20 PO; ATOR20TA50 PO; HYDR-4902 PO; HYDR25TA5 PO; INSLANTI SC; INSREGI SC; INSU100I54 SC; INSUINJ37 SC; METF-372 PO; OLME40TA78 PO; TAMS-35 PO
--- NOTE | 2025-04-27 11:52 | ED.PDOC ---
History of Present Illness HPI Comments 69-year-old female who presents to the ED with chief complaint of flank pain. Patient states she has been having left-sided flank pain since yesterday. Patient states the pain feels like the last time she had a shingles outbreak few years prior. Patient otherwise states that she has been having diarrhea for the past three days. The patient in the ED has noted blood pressure on 159/79 with otherwise stable vitals. Time Seen by MD: 11:59 Reviewed Notes: Medications, Allergies Allergies: Coded Allergies: NO KNOWN ALLERGIES (Unverified , 01/23/25) Home Meds Active Scripts Hydrocodone-Acetaminophen (Hydrocodone Bitartrate/AC 5-325 mg) 1 Tab Tab, 1 TAB PO Q6HP PRN, #15 TAB Prov:ELENI VALENZUELA MD 02/05/25 Tamsulosin Hcl (Flomax) 0.4 Mg Cap, 0.4 MG PO QPM for 20 Days, #20 CAP Prov:ELIGIO GALLARDO 01/30/25 Insulin Regular (Human) (Novolin R) 100 Unit/Ml Inj, 0 UNITS SC HS for 30 Days, #30 INJ Please use insulin Reglan 3 times a day before meal. Follow below instruction. Please check glucose via glucometer 3 times a day. If blood glucose is between 150 and 200 please administer 2 units of regular insulin. If blood glucose is between 200-250 please administer 4 units of regular insulin. If blood sugar is between 250 and 300 please administer 8 units of regular insulin. If blood sugar between 300-350 please administered 10 units of regular insulin. If blood sugars between 350 and 400 please administer 12 units of regular insulin. If blood sugars greater than 400 please talk to /come to the hospital. Prov:ELIGIO GALLARDO 01/30/25 Insulin Glargine (Lantus) 100 Unit/Ml Inj, 15 UNITS SC BID@0700,2200 for 30 Days, #10 INJ Prov:ELIGIO GALLARDO 01/30/25 Hctz (Hydrochlorothiazide) 25 Mg Tab, 25 MG PO DAILY for 30 Days, #30 TAB Prov:ELIGIO GALLARDO 01/30/25 Amlodipine Besylate (NORVASC TABLET) 5 Mg Tb, 10 MG PO DAILY for 30 Days, #60 TAB Prov:ELIGIO GALLARDO 01/30/25 Aspirin (Aspir-81) 81 Mg Tab, 1 TAB PO DAILY for 30 Days, #30 TAB 5 Refills Prov:ELIGIO GALLARDO 01/30/25 Atorvastatin Calcium (ATORVASTATIN CALCIUM) 20 Mg Tab, 1 TAB PO DAILY for 30 Days, #30 TAB Prov:ELIGIO GALLARDO RESIDENT 01/30/25 Reported Medications Olmesartan Medoxomil (Benicar) 40 Mg Tab, 1 TAB PO DAILY, #30 TAB 5 Refills 01/23/25 Metformin Hydrochloride (Metformin Hcl) 1,000 Mg Tab, 1 TAB PO DAILY 01/23/25 Insulin Lispro (Insulin Lispro Kwikpen) 100 Unit/Ml Inj, SC 01/23/25 Insulin Glargine (Lantus Solostar) 100 Unit/Ml Inj, SC 01/23/25 Information Source: Patient Mode of Arrival: Ambulatory Severity: Moderate Past Medical History PAST MEDICAL HISTORY: Denies Surgical History: Denies all surgeries COOK HELPER PASTRY History: Denies all COOK HELPER PASTRY Hx Family History Family History: Reviewed,noncontributory to illness Social History Smoker: Non-Smoker Alcohol: Denies ETOH Use Drugs: Denies Drug Use Lives In: Home Constitutional: denies: chills, diaphoresis, fatigue, fever, malaise, sweats, weakness, others EENTM: denies: blurred vision, double vision, ear bleeding, ear discharge, ear drainage, ear pain, ear ringing, eye pain, eye redness, hearing loss, mouth pain, mouth swelling, nasal discharge, nose bleeding, nose congestion, nose pain, photophobia, tearing, throat pain, throat swelling, voice changes, others Respiratory: denies: cough, hemoptysis, orthopnea, SOB at rest, shortness of breath, SOB with excertion, stridor, wheezing, others Cardiovascular: denies: chest pain, dizzy spells, diaphoresis, Dyspnea on exertion, edema, irregular heart beat, left arm pain, lightheadedness, palpitations, PND, syncope, others Gastrointestinal: denies: abdomen distended, abdominal pain, blood streaked bowels, constipated, diarrhea, dysphagia, difficulty swallowing, hematemesis, melena, nausea, poor appetite, poor fluid intake, rectal bleeding, rectal pain, vomiting, others Genitourinary: reports: flank pain; denies: abnormal vagina bleeding, burning, dyspareunia, dysuria, frequency, hematuria, incontinence, pain, , vagina discharge, urgency, others Neurological: denies: dizziness, fainting, headache, left sided numbness, left sided weakness, numbness, paresthesia, pre-existing deficit, right sided numbness, right sided weakness, seizure, speech problems, tingling, tremors, weakness, others Musculoskeletal: denies: back pain, gout, joint pain, joint swelling, muscle pain, muscle stiffness, neck pain, others Integumetry: denies: bruises, change in color, change in hair/nails, dryness, laceration, lesions, lumps, rash, wounds, others Allergic/Immunocompromised: denies: Difficulty Healing, Frequent Infections, Hives, Itching, others Hematologic/Lymphatic: denies: anemia, blood clots, easy bleeding, easy bruising, swollen glands, others Endocrine: denies: excessive hunger, excessive sweating, excessive thirst, excessive urination, flushing, intolerance to cold, intolerance to heat, unexplained weight gain, unexplained weight loss, others Psychiatric: denies: anxiety, bipolar disorder, depression, hopeless, panic disorder, schizophrenia, sleepless, suicidal, others All Other Systems: Reviewed and Negative Physical Exam General Appearance: No Apparent Distress, Normal HEENT: Normal ENT Inspection, Pharynx Normal, TMs Normal Neck: Full Range of Motion, Non-Tender, Normal, Normal Inspection Respiratory: Chest Non-Tender, Lungs Clear, No Accessory Muscle Use, No Respiratory Distress, Normal Breath Sounds Cardiovascular: No Edema, No JVD, No Murmur, No Gallop, Normal Peripheral Pulses, Regular Rate/Rhythm Breast Exam: Deferred Gastrointestinal: Tenderness (Left-sided flank tenderness, no rash no swelling no pus noted or dermatomal rash noted) Genitalia: Deferred Pelvic: Deferred Rectal: Deferred Extremities: No calf tenderness, Normal capillary refill, Normal inspection, Normal range of motion, Non-tender, No pedal edema Musculoskeletal : Apperance: Normal Neurologic: Alert, building and construction manager II-XII nml as Tested, No Motor Deficits, Normal Affect, Normal Mood, No Sensory Deficits Cerebellar Function: Normal Reflexes: Normal Skin: Dry, Normal Color, Warm Lymphatic: No Adenopathy Was a procedure done? Was a procedure done?: No Differential Dx Considerations may include: Left flank pain, kidney stone, pyelonephritis, UTI, X-Ray, Labs, Meds, VS Vital Signs Date Time Temp Pulse Resp B/P (MAP) Pulse Ox O2 Delivery O2 Flow Rate FiO2 04/27/25 10:49 Room Air* 0 21 04/27/25 10:47 97.8 76 18 159/79 97 97.8 Lab Test 04/27/25 12:19 04/27/25 12:16 Range/Units Urine Color Yellow Yellow Urine Clarity Clear Clear Urine pH 5.5 5.0-9.0 Urine Specific [place] 1.031 1.001-1.035 Urine Protein 1+ H Negative Urine Ketones Negative Negative Urine Blood Trace H Negative /uL Urine Nitrite Negative Negative Urine Bilirubin Negative Negative Urine Urobilinogen Normal Negative mg/dL Urine Leukocyte Esterase Negative Negative /uL Urine RBC 4 0 - 4 /hpf Urine Microscopic WBC 1 0-5 /HPF Urine Squamous Epithelial Cells Few <5 /hpf Urine Bacteria None seen None Seen /hpf Urine Glucose 4+ H Normal mg/dL White Blood Count 6.0 4.4-10.8 10^3/uL Red Blood Count 4.65 4.0-5.20 10^6/uL Hemoglobin 14.0 12.2-16.2 g/dL Hematocrit 41.0 36.0-46.0 % Mean Corpuscular Volume 88.1 80.0-100.0 fL Mean Corpuscular Hemoglobin 30.1 28.0-32.0 pg Mean Corpuscular Hemoglobin Concent 34.1 32.0-36.0 g/dL Red Cell Distribution Width 13.8 11.8-14.3 % Platelet Count 199 140-450 10^3/uL Mean Platelet Volume 9.9 6.9-10.8 fL Neutrophils (%) (Auto) 52.2 37.0-80.0 % Lymphocytes (%) (Auto) 36.5 10.0-50.0 % Monocytes (%) (Auto) 5.5 0.0-12.0 % Eosinophils (%) (Auto) 4.8 0.0-7.0 % Basophils (%) (Auto) 1.0 0.0-2.0 % Neutrophils # (Auto) 3.1 1.6-8.6 10 ^3/uL Lymphocytes # (Auto) 2.2 0.4-5.4 10 ^3/uL Monocytes # (Auto) 0.3 0-1.3 10 ^3/uL Eosinophils # (Auto) 0.3 0-0.8 10 ^3/uL Basophils # (Auto) 0.1 0-0.2 10 ^3/uL Nucleated Red Blood Cells 0.1 % Sodium Level 139 136-145 mmol/L Potassium Level 3.5 3.5-5.1 mmol/L Chloride Level 98 98-107 mmol/L Carbon Dioxide Level 30 20-31 mmol/L Anion Gap 11 5-15 Blood Urea Nitrogen 11 9-23 mg/dL Creatinine 0.83 0.550-1.02 mg/dL Glomerular Filtration Rate Calc 77 >90 mL/min BUN/Creatinine Ratio 13.3 10.0-20.0 Serum Glucose 316 H 74-106 mg/dL Calcium Level 9.3 8.7-10.4 mg/dL X-Ray, Labs, Meds, VS Comment Patient arrives alert and oriented, ABC's intact, afebrile, vital signs stable, saturating well in room air CBC was ordered to exclude anemia, blood loss, or infection. BMP was ordered to exclude electrolyte abnormalities, renal failure, dehydration, hyperglycemia Urinalysis was ordered to rule out UTI or hematuria. Diagnostic imaging ordered by me and results interpreted by radiology : Labs in the ED showed (pertinent+ and then pertinent-) Patient was given:_. Tolerated medications with no adverse reaction. Additional MDM Review of External, Non-ED records: External records reviewed. Discussion with independent historian (EMS, family) history obtained from the patient/parents (if applicable) at bedside Chronic conditions affecting care: None Social determinants of health affecting care: None Consideration of admission (observation or admission): I considered escalation of care to admission for this patient, however given the reassuring workup, the patient is safe for outpatient management. Discussion with the Radiology: No Tests considered but not performed: Prescription medication considered but not given: 12 lead EKG interpretation: Time of 1ST Reevaluation: 12:30 Reevaluation 1ST: Unchanged Patient Education/Counseling: Diagnosis, Treatment Family Education/Counseling: No Family Present SEPSIS Sepsis Screen Date sepsis recognized/suspect: Apr 27, 2025 Time Sepsis recognized/suspect: 1044 Recent Procedure: No On Antibiotic Therapy: No Respiratory Rate >20: No Heart Rate >90: No Temp<36 C (96.8 F) or >38.3 C: No SBP <90 or MAP <65 mmHG: No New Acute Mental Status Change: No Is the patient on CPAP, BIPAP,: No Vital Signs Date Time Temp Pulse Resp B/P (MAP) Pulse Ox O2 Delivery O2 Flow Rate FiO2 04/27/25 10:49 Room Air* 0 21 04/27/25 10:47 97.8 76 18 159/79 97 97.8 Laboratory Tests Test 04/27/25 12:16 White Blood Count 6.0 10^3/uL (4.4-10.8) Departure 1 Departure Time of Disposition: 13:43 Impression: Primary Impression: Pruritus Disposition: 01 HOME / SELF CARE / HOMELESS Condition: Stable e-Prescriptions Triamcinolone Acetonide (Triamcinolone Acetonide) 0.1 % Cre 1 APPLIC EX BID for 7 Days, #60 GRAMS 0 Refills Prov: NORBERTO BRIDGES NP 04/27/25 Discharged With: Self Critical Care Note Critical Care Time?: No Stability Stability form required: No Heart Score Heart Score: Heart Score Response (Comments) Value History N/A 0 EKG N/A 0 Age N/A 0 Risk Factors N/A 0 Troponin N/A 0 Total 0 I personally scribed for NORBERTO BRIDGES SOLAR PROJECT MANAGER (ADARSH) on 04/27/25 at 11:52. Electronically submitted by Giselle Person ([email or web address]). I personally scribed for NORBERTO BRIDGES NP (ADARSH) on 04/27/25 at 12:03. Electronically submitted by Giselle MEDINA). NORBERTO BRIDGES SOLAR PROJECT MANAGER Apr 27, 2025 11:52
[2025-04-27 12:35] LABS: Urine Protein, UAD 1+ (Negative)
[2025-04-27 13:08] LABS: Hematocrit 41.0 % (36.0-46.0); Hemoglobin 14.0 g/dL (12.2-16.2); Mean Corpuscular Hemoglobin 30.1 pg (28.0-32.0); Mean Corpuscular Volume 88.1 fL (80.0-100.0); Nucleated Red Blood Cells % 0.1 %
[2025-04-27 13:13] LABS: Potassium 3.5 mmol/L (3.5-5.1); Sodium 139 mmol/L (136-145)
[2025-04-27 13:14] LABS: Anion Gap 11 (5-15); Carbon Dioxide 30 mmol/L (20-31)
[2025-04-27 13:15] LABS: Calcium 9.3 mg/dL (8.7-10.4)
[2025-04-27 13:20] LABS: BUN/Creatinine Ratio 13.3 (10.0-20.0); Blood Urea Nitrogen 11 mg/dL (9-23)
[2025-04-27 13:21] LABS: Chloride 98 mmol/L (98-107); Glucose 316 mg/dL (74-106)
[2025-04-27] MEDS ORDERED: TRIO1TP EX (13:44)
[2025-04-27 13:51] VITALS: BP 153/75; PULSE 69; RESP 18; TEMP 98.7; O2SAT 96
== END 2025-04-27 13:54 | disposition home or self-care (01) ==
LOC: ER 10:44
DX: L29.9 Pruritus, unspecified (principal); Z79.82 Long term (current) use of aspirin; Z79.84 Long term (current) use of oral hypoglycemic drugs; Z79.899 Other long term (current) drug therapy
CPT/HCPCS: 36415; 80048; 81001; 85025

== ENCOUNTER 2025-05-10 16:58 | Emergency (ER) | payer MEDICARE, MEDICAID ==
[~2025-05-10] VITALS: Ht 165.1 cm; Wt 65.0 kg
[~2025-05-10 16:58] MED LIST changes: +TRIO1TP EX
[2025-05-10] MEDS: clonazePAM 0.5 MG TAB PO ONE (18:34)
--- NOTE | 2025-05-10 18:52 | ED.PDOC ---
Psychiatric HPI Comments BIBA PER PT STATES DAUGHTER CALLED OUT D/T PT HAS BEEN CRYING A LOT AND STRESSED OUT D/T PT RECCENTLY LOSS HER SON AND HAS BEEN TIRED HAVING HEADACHES. Chief Complaint: Anxiety Time Seen by MD: 18:05 Reviewed Notes: Nurses Notes, Software Design Manager Notes, Medications, Allergies Information Source: Patient Mode of Arrival: EMS Past Medical History PAST MEDICAL HISTORY: Denies Surgical History: Denies all surgeries AUDITING CODER History: Denies all AUDITING CODER Hx Family History Family History: Reviewed,noncontributory to illness Social History Smoker: Non-Smoker Alcohol: Denies ETOH Use Drugs: Denies Drug Use Lives In: Home All Other Systems: Reviewed and Negative (see hpi) Physical Exam General Appearance: No Apparent Distress, Normal HEENT: Pharynx Normal Neck: Full Range of Motion, Non-Tender Respiratory: Lungs Clear, No Respiratory Distress, Normal Breath Sounds Cardiovascular: No Edema, No JVD, No Murmur, No Gallop, Normal Peripheral Pulses, Regular Rate/Rhythm Breast Exam: Deferred Gastrointestinal: No Organomegaly, Non Tender, No Pulsatile Mass, Normal Bowel Sounds, Soft Genitalia: Deferred Pelvic: Deferred Rectal: Deferred Extremities: Normal range of motion, Non-tender Musculoskeletal : Apperance: Normal Neurologic: Alert, No Motor Deficits, Normal Affect, Normal Mood, No Sensory Deficits Cerebellar Function: Normal Reflexes: NOT DONE Skin: Dry, Normal Color, Warm Lymphatic: No Adenopathy Was a procedure done? Was a procedure done?: No Psych Differential Dx Psych. Differential Dx: Anxiety, Depression, Sleepless X-Ray, Labs, Meds, VS Vital Signs Date Time Temp Pulse Resp B/P (MAP) Pulse Ox O2 Delivery O2 Flow Rate FiO2 05/10/25 17:11 98.3 84 16 151/100 94 98.3 Current Medications Medications (Trade) Dose Ordered Sig/Francie Route Start Time Stop Time Status Last Admin Clonazepam (KlonoPIN TABLET) 0.5 mg ONCE ONCE PO 05/10/25 18:15 05/10/25 18:16 DC 05/10/25 18:34 X-Ray, Labs, Meds, VS Comment Patient with daughter at bedside. Patient given Klonopin noted moderate improvement daughter requested discharge and requesting something for patient for sleep. Script trial of trazodone advised to start half tab 25 mg HS and increase as tolerated. Advised to call PCP Sunday morning and schedule a follow up further refills or started an SSRI if symptoms persist. ER return precautions given patient and daughter indicated understanding and agree with discharge plan of care. Time of 1ST Reevaluation: 18:05 Reevaluation 1ST: Unchanged Time of 2ND Reevaluation: 19:03 Reevaluation 2ND: Improved Patient Education/Counseling: Diagnosis, Treatment, Need For Follow Up Family Education/Counseling: No Family Present Departure 1 Departure Time of Disposition: 19:00 Impression: Primary Impression: Situational mixed anxiety and depressive disorder Disposition: 01 HOME / SELF CARE / HOMELESS Condition: Stable e-Prescriptions Trazodone Hcl (Trazodone Hcl) 50 Mg Tab 50 MG PO HS PRN for 10 Days, #10 TAB Start with a half tab(25 mg) HS for insomnia increase to one tab as tolerated Prov: PREM EDWARDS 05/10/25 Discharged With: Self Critical Care Note Critical Care Time?: No Stability Stability form required: No PREM EDWARDS May 10, 2025 18:52
[2025-05-10] MEDS ORDERED: TRAZ-227 PO (19:03)
[2025-05-10 19:10] VITALS: BP 155/77; PULSE 80; RESP 18; TEMP 98.1; O2SAT 95
== END 2025-05-10 19:35 | disposition home or self-care (01) ==
LOC: EDBD 16:58 → ER 16:58
DX: F41.8 Other specified anxiety disorders (principal)